=== PATIENT | male | born 1945 | race Caucasian/White ===

== ENCOUNTER → 2017-10-06 | Outpatient (CLI) | payer MEDICARE ==
--- NOTE | 2017-10-06 12:18 | FL ---
Modified barium swallow HISTORY: Dysphagia 1 minute 18 seconds fluoroscopy time supplied. No intraoperative images obtained. Patient was given barium mixed with solids and liquids. Real-time evaluation performed in the lateral projection. No laryngeal penetration or aspiration identified. Residuals were noted at the level of the vallecula on multiple occasions. See dictated report from speech pathology for full evaluation.
== END | disposition home or self-care (01) ==
LOC: RADFLMAIN 11:09
PROVIDERS: ATTEND Otolaryngology
DX: R13.10 Dysphagia, unspecified (principal)
CPT/HCPCS: 74230

== ENCOUNTER → 2018-04-12 | Outpatient (CLI) | payer MEDICARE ==
--- NOTE | 2018-04-12 08:36 | US ---
EXAMINATION TYPE: US duplex aorta DATE OF EXAM: 04/12/2018 COMPARISON: NONE CLINICAL HISTORY: Z82.49 Family hx of Ischemic heart disease and oth. no symptoms, family h/o brain a neurysm and AAA EXAM MEASUREMENTS: Abdominal Aorta: Proximal: not seen due to bowel gas Mid: 1.9 x 2.2cm Distal: 1.7 x 1.7cm Bifurcation: Rt = 1.2cm Lt = 1.1cm No obvious signs of aneurysm seen today, proximal portion was gassed out IMPRESSION: Nonvisualization of the proximal abdominal aorta due to overlying bowel gas. No sonograph ic evidence of abdominal aortic aneurysm within the mid abdominal aorta, and distal abdominal aorta o r at the aortoiliac bifurcation.
--- NOTE | 2018-04-12 09:33 | CT ---
EXAMINATION TYPE: CT angio head DATE OF EXAM: 04/12/2018 COMPARISON: None HISTORY: 72-year-old male family history of ischemic heart disease TECHNIQUE: Contiguous axial scanning of the head performed with IV Contrast, patient injected with 10 0 ml mL of Isovue 370. Coronal/sagittal MIP reconstructions performed. Reconstructions generated on a dedicated independent workstation. CT DLP: 1398.50 mGycm Automated exposure control for dose reduction was used. FINDINGS: Anterior and posterior circulations are patent without significant stenosis or arterial occlusion. No aneurysmal changes identified. Dural venous sinuses are patent. Slight leftward nasal septal deviation. Paranasal sinuses and mastoid air cells well pneumatized. Orb its and globes appear intact. No mass effect, midline shift, or hydrocephalus. No effacement of basal subarachnoid cisterns. IMPRESSION: NO SPECIFIC ABNORMALITY IDENTIFIED ON CTA OF THE HEAD AND [place] OF BUTT.
== END | disposition home or self-care (01) ==
LOC: RADUSMAIN 07:31
PROVIDERS: ATTEND Family Medicine
DX: Z13.6 Encounter for screening for cardiovascular disorders (principal); Z82.49 Family history of ischemic heart disease and other diseases of the circulatory system
CPT/HCPCS: 82565; 84520; 93979; 70496; 36415; Q9967

== ENCOUNTER 2018-06-12 06:37 | Day surgery (SDC) | payer MEDICARE ==
[2018-06-06 16:26] VITALS: BMI 23.7
[2018-06-12] MEDS: CYCLOPENTOLATE 1% OPHTH SOLN 2 ML BTL OP ONE ×3 (06:57→07:18)
[2018-06-12] MEDS: PHENYLEPHRINE 10% OPHTH DROPS 5 ML BTL OP ONE ×3 (07:00→07:21)
[2018-06-12] MEDS: FLURBIPROFEN 0.03% OPHTH DROPS 2.5 ML BTL OP ONE ×3 (07:03→07:25)
[2018-06-12 07:13] VITALS: TEMP 97.1
[2018-06-12] MEDS ORDERED: DEXAMETHASONE SOD PHOSPHATE 10 MG/ML 1 ML VIAL IV ONE (07:15)
[2018-06-12] MEDS ORDERED: ONDANSETRON 4 MG/2 ML VIAL IVP ONE (07:15)
[2018-06-12] MEDS ORDERED: LIDOCAINE 1% 20 ML VIAL (10MG/ML) FOR IV START INTRADERMA PRN (07:15)
[2018-06-12] MEDS ORDERED: MORPHINE SULFATE 2 MG/ML SYRINGE IV PRN (07:15)
[2018-06-12] MEDS ORDERED: LACTATED RINGERS 1,000 ML IV SCH (07:15)
[2018-06-12 07:16] LABS: Glucose,Whole Blood 123 mg/dL (75-99)
[2018-06-12] MEDS ORDERED: LIDOCAINE 1% 20 ML VIAL (10MG/ML) FOR IV START INTRADERMA ONE (07:16)
[2018-06-12] MEDS ORDERED: PROPOFOL 10 MG/ML 20 ML VIAL IV ONE (08:27)
[2018-06-12] MEDS ORDERED: BALANCED SALT IRRIG SOLN COMB2 15 ML IRRIG.SOLN INTRAOCULA ONE (08:34)
[2018-06-12] MEDS ORDERED: HYALURONATE SODIUM INTRAOCULAR 1 EACH SYRINGE (10MG/ML) INTRAOCULA ONE (08:34)
[2018-06-12] MEDS ORDERED: EPINEPHrine (PF) 0.5 ML in BALANCED SALT IRRIG SOLN COMB2 500 ML IRRIGATION ONE (08:35)
--- NOTE | 2018-06-12 09:00 | P.OP ---
Date of Procedure: 06/12/18 Procedure(s) Performed: PREOPERATIVE DIAGNOSIS: Cataract, left eye. POSTOPERATIVE DIAGNOSIS: Cataract, left eye. OPERATION: Phacoemulsification cataract, left eye. DESCRIPTION OF PROCEDURE: The patient was taken to the preoperative holding area. Intravenous Propofol was given so as to bring about adequate sedation. The following mixture was given for local anesthesia: 5 mL of 2% lidocaine, 5 mL of 0.75% Marcaine, and 1 mL of Wydase. Approximately 4 mL was injected in the retrobulbar space of the surgical eye. Additional 1 mL was then directed to the temporal area of the surgical eye. This was performed to allow adequate neurological block of the facial muscles. The patient was revived and then taken into the operative room. The patient was prepped and draped in the usual sterile manner for the operative eye. A lid speculum was put into position. The conjunctiva was resected back from the limbus in the 12 o'clock position. Bleeding was controlled with electrocautery. A #69 blade was then used and a half-thickness scleral incision approximately 1-mm posterior to the limbus was made on bare sclera. This was shelved in the clear cornea using a crescent knife. Next a 15-degree blade was used to make a stab incision at the 3 o' clock position at the corneolimbal interface. Keratome blade was then used and the superior wound was extended into the anterior chamber. Viscoelastic was injected into the anterior chamber and to maintain its form. Next, a cystotome was used and a continuous anterior capsulotomy was made without difficulty. Hydrodissection using a blunt cannula and BSS was performed. Phaco probe was then employed and a groove extending from 12 to 6 o'clock in the lens was created. A Juan wand was used through the stab incision so as to perform a divide and conquer technique. Next an irrigation aspiration probe was utilized and any residual cortex was removed from the eye. Again, viscoelastic was injected into the anterior chamber. An Aaron posterior chamber lens implant was placed in the cartridge and injected into the anterior chamber without difficulty. The SinBrandkidsey hook was utilized to spin the lens into position and this was again performed without any difficulty. The irrigation and aspiration probe was again employed and any residual viscoelastic was removed from the eye. Then BSS was injected into the limbal stab incision and the anterior chamber re-inflated. The conjunctiva was reapproximated using electrocautery. One drop of 0.25% Timoptic was placed over the corneal along with TobraDex ophthalmic ointment. Two sterile patches and a Burt eye shield were taped into position. The patient was transported to the recovery room in stable condition. Pathology: none sent Condition: stable Disposition: same day
[2018-06-12 09:02] VITALS: RESP 18
[2018-06-12 09:16] VITALS: BP 119/72; PULSE 64
[2018-06-12] MEDS ORDERED: BUPIVACAINE (PF) 0.75% 5 ML, HYALURONIDASE, HUMAN RECOMB 150 UNIT, LIDOCAINE 2% (PF) 10... MISCELLANE ONE ×3 (23:00)
[2018-06-12] MEDS ORDERED: TIMOLOL 0.5% OPHTH DROPS 5 ML BTL OP ONE (23:00)
[2018-06-12] MEDS ORDERED: GENTAMICIN/PREDNISOL AC OPHTH OINT 3.5GM OPHTHALMIC ONE (23:00)
== END 2018-06-12 09:37 | disposition home or self-care (01) ==
LOC: OR 06:37
PROVIDERS: ATTEND Ophthalmology
DX: E11.36 Type 2 diabetes mellitus with diabetic cataract (principal); H40.051 Ocular hypertension, right eye; M19.90 Unspecified osteoarthritis, unspecified site; I10 Essential (primary) hypertension; E78.5 Hyperlipidemia, unspecified; K21.9 Gastro-esophageal reflux disease without esophagitis; Z79.84 Long term (current) use of oral hypoglycemic drugs; Z79.899 Other long term (current) drug therapy; Z88.0 Allergy status to penicillin; Z88.2 Allergy status to sulfonamides
CPT/HCPCS: 66984; V2632; J3470; J2001; J0171; J2704

== ENCOUNTER 2019-09-14 14:55 | Inpatient (IN) | payer MEDICARE ==
--- NOTE | 2019-09-14 15:37 | ED ---
Abdominal Pain HPI - General Chief Complaint: Abdominal Pain Stated Complaint: Constipation Time Seen by Provider: 09/14/19 15:07 Source: patient, RN notes reviewed, old records reviewed Mode of arrival: ambulatory Limitations: physical limitation - History of Present Illness Initial Comments: this is a 73-year-old male to ER for evaluation patient was seen for severe abdominal pain difficulty for having a bowel movement 3 days. Patient initially started with constipation on Monday did have about Monday and was very constipated. There are some loose stools prior to both and asperse especially prior to today's constipation. Patient was having a bowel pain and bloating with nausea and vomiting. No fevers. No history of surgery. Patient is a colonoscopy in the past has been normal. MD Complaint: abdominal pain, other (constipation and bloating) -: days(s) Location: diffuse Radiation: none Migration to: no migration Severity: moderate Severity scale (1-10): 5 Quality: cramping, aching Consistency: constant Improves With: nothing Worsens With: nothing Associated Symptoms: nausea, vomiting, constipation - Related Data Home Medications Medication Instructions Recorded Confirmed Cinnamon Bark [Cinnamon] 1,000 mg PO DAILY 03/18/15 06/12/18 Finasteride [Proscar] 5 mg PO HS 03/18/15 06/12/18 Flaxseed [Flaxseed Oil] 1,200 mg PO DAILY 03/18/15 06/12/18 glipiZIDE [Glucotrol] 5 mg PO BID 03/18/15 06/12/18 metFORMIN HCL [Glucophage] 1,000 mg PO W/SUPPER 03/18/15 06/12/18 Aspirin 81 mg PO DAILY 07/17/15 06/12/18 Atorvastatin [Lipitor] 10 mg PO HS 06/06/18 06/12/18 Losartan [Cozaar] 25 mg PO DAILY 06/06/18 06/12/18 Multivitamins, Thera [Multivitamin 1 tab PO DAILY 06/06/18 06/12/18 (formulary)] Omeprazole 20 mg PO HS 06/06/18 06/12/18 Allergies Allergy/AdvReac Type Severity Reaction Status Date / Time Penicillins Allergy Unknown Verified 09/14/19 15:01 Sulfa (Sulfonamide Allergy Swelling, Verified 09/14/19 15:01 Antibiotics) Rash Review of Systems ROS Statement: Those systems with pertinent positive or pertinent negative responses have been documented in the HPI. ROS Other: All systems not noted in ROS Statement are negative. Past Medical History Past Medical History: Diabetes Mellitus, GERD/Reflux, Hyperlipidemia, Hypertension, Skin Disorder Additional Past Medical History / Comment(s): DYSPHAGIA, PAST HX OF MIGRAINES, PSORIASIS., BACK PAIN, STATES POOR VISION RIGHT EYE., CATARACT LEFT EYE., ZION HEARING AIDS. History of Any Multi-Drug Resistant Organisms: None Reported Past Surgical History: Orthopedic Surgery Additional Past Surgical History / Comment(s): 07/22/15 excision anterior osteophytes C3-C4, C4-C5 with NIM cord monitoring. Other SX: LEFT KNEE I&D FOR INFECTION, PICC LINE-later removed, rt cataract, rt knee surgery Past Anesthesia/Blood Transfusion Reactions: Postoperative Nausea & Vomiting (PONV) Past Psychological History: No Psychological Hx Reported Smoking Status: Never smoker Past Alcohol Use History: None Reported Past Drug Use History: None Reported - Past Family History Brother(s) Family Medical History: Cancer Additional Family Medical History / Comment(s): Twin brother = skin cancer. General Exam Limitations: physical limitation General appearance: alert, in no apparent distress Head exam: Present: atraumatic, normocephalic, normal inspection Eye exam: Present: normal appearance, PERRL, EOMI. Absent: scleral icterus, conjunctival injection, periorbital swelling ENT exam: Present: normal exam, mucous membranes moist Neck exam: Present: normal inspection. Absent: tenderness, meningismus, l ymphadenopathy Respiratory exam: Present: normal lung sounds bilaterally. Absent: respiratory distress, wheezes, rales, rhonchi, stridor Cardiovascular Exam: Present: normal rhythm, tachycardia, normal heart sounds. Absent: systolic murmur, diastolic murmur, rubs, gallop, clicks GI/Abdominal exam: Present: distended, tenderness, guarding, normal bowel sounds. Absent: rebound, rigid Extremities exam: Present: normal inspection, full ROM, normal capillary refill. Absent: tenderness, pedal edema, joint swelling, calf tenderness Back exam: Present: normal inspection Neurological exam: Present: alert, oriented X3, CN II-XII intact Psychiatric exam: Present: normal affect, normal mood Skin exam: Present: warm, dry, intact, normal color. Absent: rash Course Vital Signs 09/14/19 09/14/19 14:58 17:48 Temperature 98.6 F 99.0 F Pulse Rate 124 H 89 Respiratory 20 18 Rate Blood Pressure 140/72 130/73 O2 Sat by Pulse 98 97 Oximetry - Reevaluation(s) Reevaluation #1: 09/14/19 16:40 medical record is reviewed Reevaluation #2: 09/14/19 18:54 patient does have adequate pain control - Consultations Consultation #1: Dr. Becerril on consult for Dr. Wick - requested by family member who works in OR. Patient to be admitted Consultation #2: spoke w Dr Mcmahon who is agreeable for admission Medical Decision Making - Medical Decision Making 73 male here for evaluation of abdominal pain with gallstone pancreatitis. Patient be admitted for surgical evaluation and treatment - Lab Data Result diagrams: 09/14/19 15:51 09/14/19 15:51 Lab Results 09/14/19 09/14/19 09/14/19 Range/Units 15:40 15:50 15:51 WBC (3.8-10.6) k/uL RBC (4.30-5.90) m/uL Hgb (13.0-17.5) gm/dL Hct (39.0-53.0) % MCV (80.0-100.0) fL MCH (25.0-35.0) pg MCHC (31.0-37.0) g/dL RDW (11.5-15.5) % Plt Count (150-450) k/uL Neutrophils % % Lymphocytes % % Monocytes % % Eosinophils % % Basophils % % Neutrophils # (1.3-7.7) k/uL Lymphocytes # (1.0-4.8) k/uL Monocytes # (0-1.0) k/uL Eosinophils # (0-0.7) k/uL Basophils # (0-0.2) k/uL Sodium 139 (137-145) mmol/L Potassium 4.4 (3.5-5.1) mmol/L Chloride 102 (98-107) mmol/L Carbon Dioxide 24 (22-30) mmol/L Anion Gap 13 mmol/L BUN 21 H (9-20) mg/dL Creatinine 1.07 (0.66-1.25) mg/dL Est GFR (CKD-EPI)AfAm 80 (>60 ml/min/1.73 sqM) Est GFR (CKD-EPI)NonAf 69 (>60 ml/min/1.73 sqM) Glucose 152 H (74-99) mg/dL Plasma Lactic Acid Diego 2.0 (0.7-2.0) mmol/L Calcium 10.1 (8.4-10.2) mg/dL Total Bilirubin 7.0 H (0.2-1.3) mg/dL AST 189 H (17-59) U/L ALT 256 H (4-49) U/L Alkaline Phosphatase 190 H (38-126) U/L Creatine Kinase 39 L (55-170) U/L Total Protein 8.4 H (6.3-8.2) g/dL Albumin 4.7 (3.5-5.0) g/dL Amylase 473 H* (30-110) U/L Lipase 3749 H (23-300) U/L Urine Color Dark Yellow Urine Appearance Cloudy (Clear) Urine pH 5.5 (5.0-8.0) Ur Specific [place] 1.021 (1.001-1.035) Urine Protein 1+ H (Negative) Urine Glucose (UA) Negative (Negative) Urine Ketones 2+ H (Negative) Urine Blood Trace H (Negative) Urine Nitrite Negative (Negative) Urine Bilirubin 1+ H (Negative) Urine Urobilinogen 4.0 (<2.0) mg/dL Ur Leukocyte Esterase Negative (Negative) Urine RBC 2 (0-5) /hpf Urine WBC 2 (0-5) /hpf Ur Squamous Epith Cells 1 (0-4) /hpf Amorphous Sediment Rare H (None) /hpf Urine Bacteria Rare H (None) /hpf Hyaline Casts 1 (0-2) /lpf Urine Mucus Occasional H (None) /hpf 09/14/19 Range/Units 15:51 WBC 6.5 (3.8-10.6) k/uL RBC 4.94 (4.30-5.90) m/uL Hgb 15.9 (13.0-17.5) gm/dL Hct 45.8 (39.0-53.0) % MCV 92.8 (80.0-100.0) fL MCH 32.2 (25.0-35.0) pg MCHC 34.7 (31.0-37.0) g/dL RDW 12.6 (11.5-15.5) % Plt Count 149 L (150-450) k/uL Neutrophils % 84 % Lymphocytes % 6 % Monocytes % 7 % Eosinophils % 1 % Basophils % 1 % Neutrophils # 5.5 (1.3-7.7) k/uL Lymphocytes # 0.4 L (1.0-4.8) k/uL Monocytes # 0.4 (0-1.0) k/uL Eosinophils # 0.1 (0-0.7) k/uL Basophils # 0.0 (0-0.2) k/uL Sodium (137-145) mmol/L Potassium (3.5-5.1) mmol/L Chloride (98-107) mmol/L Carbon Dioxide (22-30) mmol/L Anion Gap mmol/L BUN (9-20) mg/dL Creatinine (0.66-1.25) mg/dL Est GFR (CKD-EPI)AfAm (>60 ml/min/1.73 sqM) Est GFR (CKD-EPI)NonAf (>60 ml/min/1.73 sqM) Glucose (74-99) mg/dL Plasma Lactic Acid Diego (0.7-2.0) mmol/L Calcium (8.4-10.2) mg/dL Total Bilirubin (0.2-1.3) mg/dL AST (17-59) U/L ALT (4-49) U/L Alkaline Phosphatase (38-126) U/L Creatine Kinase (55-170) U/L Total Protein (6.3-8.2) g/dL Albumin (3.5-5.0) g/dL Amylase (30-110) U/L Lipase (23-300) U/L Urine Color Urine Appearance (Clear) Urine pH (5.0-8.0) Ur Specific [place] (1.001-1.035) Urine Protein (Negative) Urine Glucose (UA) (Negative) Urine Ketones (Negative) Urine Blood (Negative) Urine Nitrite (Negative) Urine Bilirubin (Negative) Urine Urobilinogen (<2.0) mg/dL Ur Leukocyte Esterase (Negative) Urine RBC (0-5) /hpf Urine WBC (0-5) /hpf Ur Squamous Epith Cells (0-4) /hpf Amorphous Sediment (None) /hpf Urine Bacteria (None) /hpf Hyaline Casts (0-2) /lpf Urine Mucus (None) /hpf - Radiology Data Radiology results: report reviewed (x-ray KUB and abdominal series with chest x- ray is negative, GALLBLADDER DOES SHOW SIGNIFICANTLY DILATED, BILE DUCT CONSISTENT WITH GALLSTONE PANCREATITIS), image reviewed Disposition Clinical Impression: Acute gallstone pancreatitis, Abdominal pain Disposition: ADMITTED IP TO THIS [facility] Condition: Fair Is patient prescribed a controlled substance at d/c from ED?: No Referrals: Libby Garcia III, MD [Primary Care Provider] - 1-2 days
[2019-09-14] MEDS ORDERED: MORPHINE SULFATE 4 MG/ML SYRINGE IV STA (15:43)
[2019-09-14] MEDS ORDERED: SODIUM CHLORIDE 0.9% 1,000 ML IV STA (15:43)
[2019-09-14] MEDS ORDERED: PANTOPRAZOLE 40 MG/10 ML VIAL IVP STA (15:43)
[2019-09-14] MEDS ORDERED: ONDANSETRON 4 MG/2 ML VIAL IVP STA (15:43)
[2019-09-14 16:17] LABS: Amorphous Sediment,Urine Rare /hpf; Appearance,Urine Cloudy (Clear); Bilirubin,Urine 1+ (Negative); Blood,Urine Trace (Negative); Color,Urine Dark Yellow; Glucose,Urine (UA) Negative (Negative); Hyaline Casts,Urine 1 /lpf (0-2); Ketones,Urine 2+ (Negative); Leukocyte Esterase,Urine Negative (Negative); Mucus,Urine Occasional /hpf; Nitrite,Urine Negative (Negative); PH, Urine 5.5 (5.0-8.0); Protein,Urine 1+ (Negative); RBC,Urine 2 /hpf (0-5); Specific Gravity,Urine 1.021 (1.001-1.035); Squamous Epithelial Cell,Urine 1 /hpf (0-4); WBC,Urine 2 /hpf (0-5)
[2019-09-14 16:26] LABS: Basophils % (A) 1 %; Eosinophils # (A) 0.1 k/uL (0-0.7); Eosinophils % (A) 1 %; HCT 45.8 % (39.0-53.0); HGB 15.9 gm/dL (13.0-17.5); Lymphocytes # (A) 0.4 k/uL (1.0-4.8); Lymphocytes % (A) 6 %; MCH 32.2 pg (25.0-35.0); MCHC 34.7 g/dL (31.0-37.0); MCV 92.8 fL (80.0-100.0); Mean Platelet Volume 8.5; Monocytes # (A) 0.4 k/uL (0-1.0); Monocytes % (A) 7 %; Neutrophils # (A) 5.5 k/uL (1.3-7.7); Neutrophils % (A) 84 %; Platelet Count 149 k/uL (150-450); RBC 4.94 m/uL (4.30-5.90); RDW 12.6 % (11.5-15.5); WBC 6.5 k/uL (3.8-10.6)
[2019-09-14 16:41] LABS: Albumin 4.7 g/dL (3.5-5.0); Calcium 10.1 mg/dL (8.4-10.2); Potassium 4.4 mmol/L (3.5-5.1); Total Protein 8.4 g/dL (6.3-8.2)
--- NOTE | 2019-09-14 17:07 | XR ---
EXAMINATION TYPE: XR abdomen acute w cxr DATE OF EXAM: 09/14/2019 COMPARISON: Prior chest x-ray 07/13/2015 HISTORY: Pain and constipation TECHNIQUE: Supine, upright, and frontal chest views of the abdomen are obtained. FINDINGS: There is no evidence for pneumoperitoneum. The bowel gas pattern is unremarkable as there is air throughout nondilated small and large bowel. No sizeable air fluid levels. No mass effects are seen. No unusual calcifications. IMPRESSION: Unremarkable study
[2019-09-14 17:33] LABS: Bacteria,Urine Rare /hpf
--- NOTE | 2019-09-14 17:48 | US ---
EXAMINATION TYPE: US gallbladder DATE OF EXAM: 09/14/2019 COMPARISON: NONE CLINICAL HISTORY: pain. 4th episode of extreme RUQ pain with N/V EXAM MEASUREMENTS: Liver Length: 16.7 cm Gallbladder Wall: 0.2 cm CBD: 1.1 cm Right Kidney: 10.8 x 4.6 x 6.0 cm bowel gas limits exam Pancreas: not visualized due to bowel gas Liver: difficult to penetrate, intercostal images only, focal fatty sparring seen near GB jennifer Gallbladder: probable slduge noted with echogenic stones seen within, no wall thickening and no chol ecystic gutter fluid, gallbladder may be hydropic. Evidence for sonographic Mancilla's sign: no, but on pain meds at time of exam CBD: 1.1cm, dilated with no obvious sign of obstruction Right Kidney: 3.2cm renal cyst noted There is no ascites. IMPRESSION: Exam is somewhat limited. Hepatic steatosis suspected. There may be underlying hepatic me fabiola. Dilated common bile duct, consider gastroenterology consult. Probable tumefactive sludge within the gallbladder. Cholelithiasis.
[2019-09-14] MEDS ORDERED: ONDANSETRON 4 MG/2 ML VIAL IVP PRN (18:44)
[2019-09-14] MEDS: SODIUM CHLORIDE 0.9% 500 ML 500 ML IV SCH ×3 (19:13→20:13)
--- NOTE | 2019-09-14 20:05 | CT ---
EXAMINATION TYPE: CT abdomen pelvis w con DATE OF EXAM: 09/14/2019 COMPARISON: HISTORY: Constipation and abdominal pain. CT DLP: 1147.5 mGycm Automated exposure control for dose reduction was used. TECHNIQUE: Helical acquisition of images from the lung bases through the pelvis have been completed. CONTRAST: Performed without Oral Contrast and with IV Contrast, patient injected with 100 mL of Isovue 300. FINDINGS: There are coronary calcifications. LUNG BASES: There is some dependent atelectatic changes present. AORTA: No significant abnormality is appreciated. LIVER/GB: Liver shows low attenuation likely due to hepatic steatosis. Gallbladder shows some depende nt hyperdensity likely due to some retained stones. Some questionable dependent density present withi n the distal common bile duct on axial image 44 within the head of the pancreas. Common bile duct and gallbladder are dilated. PANCREAS: No significant abnormality is seen. SPLEEN: No significant abnormality is seen. ADRENALS: No significant abnormality is seen. KIDNEYS: Multiple cystic foci are associated with the kidneys. Suspect there is a renal artery aneury sm in the left renal hilum measuring 2 cm, crescentic calcification is present REPRODUCTIVE ORGANS: Prostate is enlarged. BOWEL: No significant abnormality is seen. FREE AIR: No Free Air visible. ASCITES: None visible. PELVIC ADENOPATHY: None visualized. RETROPERITONEAL ADENOPATHY: No Retroperitoneal Adenopathy visible. URINARY BLADDER: No significant abnormality is seen. OSSEOUS STRUCTURES: No significant abnormality is seen. IMPRESSION: CHOLELITHIASIS, DIFFICULT TO EXCLUDE CHOLEDOCHOLITHIASIS, CORRELATE FOR CHOLECYSTITIS, THERE IS DILAT ED COMMON BILE DUCT. Left renal artery aneurysm.
[2019-09-14] MEDS: SODIUM CHLORIDE 0.9% 1,000 ML IV SCH (20:41)
[2019-09-14 21:50] LABS: Glucose,Whole Blood 103 mg/dL (75-99)
[2019-09-14] MEDS: INSULIN ASPART (NovoLOG) 100 UNIT/ML VIAL SQ SCH (21:59)
[2019-09-15 00:40] LABS: Glucose,Whole Blood 84 mg/dL (75-99)
[2019-09-15] MEDS: SODIUM CHLORIDE 0.9% 1,000 ML IV SCH ×3 (03:04→18:30)
[2019-09-15 04:04] LABS: Glucose,Whole Blood 85 mg/dL (75-99)
[2019-09-15 07:05] LABS: Glucose,Whole Blood 76 mg/dL (75-99)
[2019-09-15 07:46] LABS: ALT 183 U/L (4-49); AST 129 U/L (17-59); African American GFR (CKD) >90 (>60 ml/min/1.73 sqM); Alkaline Phosphatase 148 U/L (38-126); Amylase 209 U/L (30-110); Anion Gap 8 mmol/L; Blood Urea Nitrogen 15 mg/dL (9-20); Calcium 8.4 mg/dL (8.4-10.2); Carbon Dioxide 22 mmol/L (22-30); Chloride 108 mmol/L (98-107); Glucose 72 mg/dL (74-99); Non-African American GFR(CKD) 79 (>60 ml/min/1.73 sqM); Sodium 138 mmol/L (137-145); Total Bilirubin 6.5 mg/dL (0.2-1.3); Total Protein 5.9 g/dL (6.3-8.2)
[2019-09-15 08:09] LABS: Glucose,Whole Blood 74 mg/dL (75-99)
[2019-09-15] MEDS ORDERED: DEXTROSE 10 % IN WATER 250 ML IV ONE (08:21)
[2019-09-15] MEDS: INSULIN ASPART (NovoLOG) 100 UNIT/ML VIAL SQ SCH ×4 (08:22→21:16)
[2019-09-15] MEDS: PANTOPRAZOLE 40 MG/10 ML VIAL IV SCH (08:23)
[2019-09-15] MEDS: MORPHINE SULFATE 4 MG/ML SYRINGE IVP PRN ×2 (09:11→21:24)
[2019-09-15 10:08] LABS: Glucose,Whole Blood 141 mg/dL (75-99)
[2019-09-15 11:27] LABS: Glucose,Whole Blood 121 mg/dL (75-99)
[2019-09-15] MEDS: ENOXAPARIN 40 MG/0.4 ML SYRINGE SQ SCH (11:28)
--- NOTE | 2019-09-15 14:22 | P.HPIM ---
History of Present Illness Patient is a pleasant 73-year-old male came in with complaints of severe abdominal pain the epigastric area radiating to the back. Patient pain was severe sharp in nature. Patient is found to have pancreatitis with elevated lipase of around 2010 as well as elevated amylase along with elevated liver enzymes, ultrasound and CAT scan did show cholelithiasis and possible cholecystitis and possibility of choledocholithiasis and ascending cholangitis with elevated liver enzymes. Liver enzymes are coming down today. Patient was later found to be bacteremic presently E. coli. Patient is ALLERGIC to penicillins because of which I started him on Rocephin 2 g. Patient is feeling much better patient almost completely resolved nausea resolved patient was having nausea and vomiting patient will be started on clear liquid diet advance as tolerated and patient will be nothing by mouth tonight for either ERCP a cholecystectomy tomorrow. Patient did not have any fever or leukocytosis Review of Systems REVIEW OF SYSTEMS: CONSTITUTIONAL: No fever, no malaise, no fatigue. HEENT: No recent visual problems or hearing problems. Denied any sore throat. CARDIOVASCULAR: No chest pain, orthopnea, PND, no palpitations, no syncope. PULMONARY: No shortness of breath, no cough, no hemoptysis. GASTROINTESTINAL: As mentioned in HPI NEUROLOGICAL: No headaches, no weakness, no numbness. HEMATOLOGICAL: Denies any bleeding or petechiae. GENITOURINARY: Denies any burning micturition, frequency, or urgency. MUSCULOSKELETAL/RHEUMATOLOGICAL: Denies any joint pain, swelling, or any muscle pain. ENDOCRINE: Denies any polyuria or polydipsia. The rest of the 14-point review of systems is negative. Past Medical History Past Medical History: Diabetes Mellitus, GERD/Reflux, Hyperlipidemia, Hypertension, Skin Disorder Additional Past Medical History / Comment(s): DYSPHAGIA, PAST HX OF MIGRAINES, PSORIASIS., BACK PAIN, STATES POOR VISION RIGHT EYE., CATARACT LEFT EYE., ZION HEARING AIDS. History of Any Multi-Drug Resistant Organisms: None Reported Past Surgical History: Orthopedic Surgery Additional Past Surgical History / Comment(s): 07/22/15 excision anterior osteophytes C3-C4, C4-C5 with NIM cord monitoring. Other SX: LEFT KNEE I&D FOR INFECTION, PICC LINE-later removed, rt cataract, rt knee surgery Past Anesthesia/Blood Transfusion Reactions: Postoperative Nausea & Vomiting (PONV) Past Psychological History: No Psychological Hx Reported Smoking Status: Never smoker Past Alcohol Use History: None Reported Past Drug Use History: None Reported - Past Family History Brother(s) Family Medical History: Cancer Additional Family Medical History / Comment(s): Twin brother = skin cancer. Medications and Allergies Home Medications Medication Instructions Recorded Confirmed Type Finasteride [Proscar] 5 mg PO HS 03/18/15 09/14/19 History Atorvastatin [Lipitor] 10 mg PO HS 06/06/18 09/14/19 History Losartan [Cozaar] 25 mg PO DAILY 06/06/18 09/14/19 History Multivitamins, Thera [Multivitamin 1 tab PO DAILY 06/06/18 09/14/19 History (formulary)] Omeprazole 20 mg PO DAILY 06/06/18 09/14/19 History Aspirin EC [Ecotrin Low Dose] 81 mg PO DAILY 09/14/19 09/14/19 History Latanoprost/Pf [Latanoprost 0.005% 1 drop BOTH EYES HS 09/14/19 09/14/19 History Eye Drop] glipiZIDE XL [Glucotrol Xl] 5 mg PO BID 09/14/19 09/14/19 History metFORMIN HCL ER [Glucophage Xr] 1,000 mg PO AC-SUPPER 09/14/19 09/14/19 History sitaGLIPtin [Januvia] 100 mg PO DAILY 09/14/19 09/14/19 History Allergies Allergy/AdvReac Type Severity Reaction Status Date / Time Penicillins Allergy Unknown Verified 09/14/19 19:06 Sulfa (Sulfonamide Allergy Swelling, Verified 09/14/19 19:06 Antibiotics) Rash Physical Exam Vitals: Vital Signs Temp Pulse Pulse Pulse Resp BP BP 09/15/19 13:59 98.0 F 88 18 146/67 09/15/19 03:55 98.6 F 93 18 105/56 09/14/19 19:50 97.9 F 92 16 129/70 09/14/19 19:00 83 18 130/75 09/14/19 17:48 99.0 F 89 18 130/73 09/14/19 14:58 98.6 F 124 H 20 140/72 Pulse Ox 09/15/19 13:59 99 09/15/19 03:55 93 L 09/14/19 19:50 99 09/14/19 19:00 97 09/14/19 17:48 97 09/14/19 14:58 98 Intake and Output 09/14/19 09/15/19 09/15/19 22:59 06:59 14:59 Intake Total 300 Output Total 1 Balance -1 300 Intake: Oral 300 Output: Stool 1 Other: Voiding Method Toilet Toilet # Voids 1 1 1 Weight 80.739 kg PHYSICAL EXAMINATION: GENERAL: The patient is alert and oriented x3, not in any acute distress. Well developed, well nourished. HEENT: Pupils are round and equally reacting to light. EOMI. No scleral icterus. No conjunctival pallor. Normocephalic, atraumatic. No pharyngeal erythema. No thyromegaly. CARDIOVASCULAR: S1 and S2 present. No murmurs, rubs, or gallops. PULMONARY: Chest is clear to auscultation, no wheezing or crackles. ABDOMEN: Soft, nontender, nondistended, normoactive bowel sounds. No palpable organomegaly. MUSCULOSKELETAL: No joint swelling or deformity. EXTREMITIES: No cyanosis, clubbing, or pedal edema. NEUROLOGICAL: Gross neurological examination did not reveal any focal deficits. SKIN: No rashes. Results CBC & Chem 7: 09/14/19 15:51 09/15/19 07:18 Labs: Abnormal Lab Results - Last 24 Hours (Table) 09/14/19 09/14/19 09/14/19 Range/Units 15:50 15:51 15:51 Plt Count 149 L (150-450) k/uL Lymphocytes # 0.4 L (1.0-4.8) k/uL Chloride (98-107) mmol/L BUN 21 H (9-20) mg/dL Glucose 152 H (74-99) mg/dL POC Glucose (mg/dL) (75-99) mg/dL Total Bilirubin 7.0 H (0.2-1.3) mg/dL AST 189 H (17-59) U/L ALT 256 H (4-49) U/L Alkaline Phosphatase 190 H (38-126) U/L Creatine Kinase 39 L (55-170) U/L Total Protein 8.4 H (6.3-8.2) g/dL Albumin (3.5-5.0) g/dL Amylase 473 H* (30-110) U/L Lipase 3749 H (23-300) U/L Urine Protein 1+ H (Negative) Urine Ketones 2+ H (Negative) Urine Blood Trace H (Negative) Urine Bilirubin 1+ H (Negative) Amorphous Sediment Rare H (None) /hpf Urine Bacteria Rare H (None) /hpf Urine Mucus Occasional H (None) /hpf 09/14/19 09/15/19 09/15/19 Range/Units 21:42 07:18 08:07 Plt Count (150-450) k/uL Lymphocytes # (1.0-4.8) k/uL Chloride 108 H (98-107) mmol/L BUN (9-20) mg/dL Glucose 72 L (74-99) mg/dL POC Glucose (mg/dL) 103 H 74 L (75-99) mg/dL Total Bilirubin 6.5 H (0.2-1.3) mg/dL AST 129 H (17-59) U/L ALT 183 H (4-49) U/L Alkaline Phosphatase 148 H (38-126) U/L Creatine Kinase (55-170) U/L Total Protein 5.9 L (6.3-8.2) g/dL Albumin 3.0 L (3.5-5.0) g/dL Amylase 209 H (30-110) U/L Lipase 1369 H (23-300) U/L Urine Protein (Negative) Urine Ketones (Negative) Urine Blood (Negative) Urine Bilirubin (Negative) Amorphous Sediment (None) /hpf Urine Bacteria (None) /hpf Urine Mucus (None) /hpf 09/15/19 09/15/19 Range/Units 10:05 11:24 Plt Count (150-450) k/uL Lymphocytes # (1.0-4.8) k/uL Chloride (98-107) mmol/L BUN (9-20) mg/dL Glucose (74-99) mg/dL POC Glucose (mg/dL) 141 H 121 H (75-99) mg/dL Total Bilirubin (0.2-1.3) mg/dL AST (17-59) U/L ALT (4-49) U/L Alkaline Phosphatase (38-126) U/L Creatine Kinase (55-170) U/L Total Protein (6.3-8.2) g/dL Albumin (3.5-5.0) g/dL Amylase (30-110) U/L Lipase (23-300) U/L Urine Protein (Negative) Urine Ketones (Negative) Urine Blood (Negative) Urine Bilirubin (Negative) Amorphous Sediment (None) /hpf Urine Bacteria (None) /hpf Urine Mucus (None) /hpf Microbiology - Last 24 Hours (Table) 09/14/19 15:55 Blood Culture Gram Stain - Preliminary Blood Blood Culture - Preliminary Escherichia coli 09/14/19 15:55 Blood Culture - Final Blood Thrombosis Risk Factor Assmnt - Choose All That Apply Each Risk Factor Represents 2 Points: Age 61-74 years Thrombosis Risk Factor Assessment Total Risk Factor Score: 2 Thrombosis Risk Factor Assessment Level: Low Risk Assessment and Plan Plan: -Sepsis and bacteremia secondary to cholecystitis and a possible ascending cholangitis patient has E. coli bacteremia patient was started on Rocephin 2 g patient is ALLERGIC to penicillin able to tolerate Rocephin, repeat blood cultures are back and for today and tomorrow patient made the need for ERCP and/or cholecystectomy. -Cholelithiasis and possible cholecystitis. -Elevated liver enzymes probably secondary to his choledocholithiasis gastric body was consulted will repeat liver enzymes again tomorrow -Gallstone pancreatitis patient's symptoms are better with be started on diet and advance it as tolerated although patient will be nothing by mouth after mi dnight -Gastroesophageal reflux disease for which patient is on Protonix neck line- hyperlipidemia -Hypertension DVT prophylaxis: Ambulation patient is ambulating in the hallway
--- NOTE | 2019-09-15 14:58 | P.GSCN ---
History of Present Illness Consult date: 09/15/19 Reason for Consult: right upper quadrant pain History of present illness: this is a 73-year-old male who's had complaints of right upper quadrant pain. Patient states over the last year he's had 4 attacks of right upper quadrant pain that he presumed was due to indigestion. Patient presents emergency room yesterday with complaints of severe pain. He is worked up found have evidence of choledocholithiasis and gallstone pancreatitis. Patient states he feels better today. Past Medical History Past Medical History: Diabetes Mellitus, GERD/Reflux, Hyperlipidemia, Hypertension, Skin Disorder Additional Past Medical History / Comment(s): DYSPHAGIA, PAST HX OF MIGRAINES, PSORIASIS., BACK PAIN, STATES POOR VISION RIGHT EYE., CATARACT LEFT EYE., ZION HEARING AIDS. History of Any Multi-Drug Resistant Organisms: None Reported Past Surgical History: Orthopedic Surgery Additional Past Surgical History / Comment(s): 07/22/15 excision anterior osteophytes C3-C4, C4-C5 with NIM cord monitoring. Other SX: LEFT KNEE I&D FOR INFECTION, PICC LINE-later removed, rt cataract, rt knee surgery Past Anesthesia/Blood Transfusion Reactions: Postoperative Nausea & Vomiting (PONV) Past Psychological History: No Psychological Hx Reported Smoking Status: Never smoker Past Alcohol Use History: None Reported Past Drug Use History: None Reported - Past Family History Brother(s) Family Medical History: Cancer Additional Family Medical History / Comment(s): Twin brother = skin cancer. Medications and Allergies Home Medications Medication Instructions Recorded Confirmed Type Finasteride [Proscar] 5 mg PO HS 03/18/15 09/14/19 History Atorvastatin [Lipitor] 10 mg PO HS 06/06/18 09/14/19 History Losartan [Cozaar] 25 mg PO DAILY 06/06/18 09/14/19 History Multivitamins, Thera [Multivitamin 1 tab PO DAILY 06/06/18 09/14/19 History (formulary)] Omeprazole 20 mg PO DAILY 06/06/18 09/14/19 History Aspirin EC [Ecotrin Low Dose] 81 mg PO DAILY 09/14/19 09/14/19 History Latanoprost/Pf [Latanoprost 0.005% 1 drop BOTH EYES HS 09/14/19 09/14/19 History Eye Drop] glipiZIDE XL [Glucotrol Xl] 5 mg PO BID 09/14/19 09/14/19 History metFORMIN HCL ER [Glucophage Xr] 1,000 mg PO AC-SUPPER 09/14/19 09/14/19 History sitaGLIPtin [Januvia] 100 mg PO DAILY 09/14/19 09/14/19 History Allergies Allergy/AdvReac Type Severity Reaction Status Date / Time Penicillins Allergy Unknown Verified 09/14/19 19:06 Sulfa (Sulfonamide Allergy Swelling, Verified 09/14/19 19:06 Antibiotics) Rash Surgical - Exam Vital Signs Temp Pulse Resp BP Pulse Ox 98.6 F 124 H 20 140/72 98 09/14/19 14:58 09/14/19 14:58 09/14/19 14:58 09/14/19 14:58 09/14/19 14:58 - General obvious jaundice well developed, well nourished, no distress - Eyes PERRL, icteric - ENT normal pinna - Neck no masses - Respiratory normal expansion - Cardiovascular Rhythm: regular - Abdomen mild epigastric tenderness Abdomen: soft Results - Labs 09/14/19 15:51 09/15/19 07:18 Abnormal Lab Results - Last 24 Hours (Table) 09/14/19 09/14/19 09/14/19 Range/Units 15:50 15:51 15:51 Plt Count 149 L (150-450) k/uL Lymphocytes # 0.4 L (1.0-4.8) k/uL Chloride (98-107) mmol/L BUN 21 H (9-20) mg/dL Glucose 152 H (74-99) mg/dL POC Glucose (mg/dL) (75-99) mg/dL Total Bilirubin 7.0 H (0.2-1.3) mg/dL AST 189 H (17-59) U/L ALT 256 H (4-49) U/L Alkaline Phosphatase 190 H (38-126) U/L Creatine Kinase 39 L (55-170) U/L Total Protein 8.4 H (6.3-8.2) g/dL Albumin (3.5-5.0) g/dL Amylase 473 H* (30-110) U/L Lipase 3749 H (23-300) U/L Urine Protein 1+ H (Negative) Urine Ketones 2+ H (Negative) Urine Blood Trace H (Negative) Urine Bilirubin 1+ H (Negative) Amorphous Sediment Rare H (None) /hpf Urine Bacteria Rare H (None) /hpf Urine Mucus Occasional H (None) /hpf 09/14/19 09/15/19 09/15/19 Range/Units 21:42 07:18 08:07 Plt Count (150-450) k/uL Lymphocytes # (1.0-4.8) k/uL Chloride 108 H (98-107) mmol/L BUN (9-20) mg/dL Glucose 72 L (74-99) mg/dL POC Glucose (mg/dL) 103 H 74 L (75-99) mg/dL Total Bilirubin 6.5 H (0.2-1.3) mg/dL AST 129 H (17-59) U/L ALT 183 H (4-49) U/L Alkaline Phosphatase 148 H (38-126) U/L Creatine Kinase (55-170) U/L Total Protein 5.9 L (6.3-8.2) g/dL Albumin 3.0 L (3.5-5.0) g/dL Amylase 209 H (30-110) U/L Lipase 1369 H (23-300) U/L Urine Protein (Negative) Urine Ketones (Negative) Urine Blood (Negative) Urine Bilirubin (Negative) Amorphous Sediment (None) /hpf Urine Bacteria (None) /hpf Urine Mucus (None) /hpf 09/15/19 09/15/19 Range/Units 10:05 11:24 Plt Count (150-450) k/uL Lymphocytes # (1.0-4.8) k/uL Chloride (98-107) mmol/L BUN (9-20) mg/dL Glucose (74-99) mg/dL POC Glucose (mg/dL) 141 H 121 H (75-99) mg/dL Total Bilirubin (0.2-1.3) mg/dL AST (17-59) U/L ALT (4-49) U/L Alkaline Phosphatase (38-126) U/L Creatine Kinase (55-170) U/L Total Protein (6.3-8.2) g/dL Albumin (3.5-5.0) g/dL Amylase (30-110) U/L Lipase (23-300) U/L Urine Protein (Negative) Urine Ketones (Negative) Urine Blood (Negative) Urine Bilirubin (Negative) Amorphous Sediment (None) /hpf Urine Bacteria (None) /hpf Urine Mucus (None) /hpf Microbiology - Last 24 Hours (Table) 09/14/19 15:55 Blood Culture Gram Stain - Preliminary Blood Blood Culture - Preliminary Escherichia coli 09/14/19 15:55 Blood Culture - Final Blood Diabetes panel 09/14/19 09/15/19 Range/Units 15:51 07:18 Sodium 139 138 (137-145) mmol/L Potassium 4.4 4.0 (3.5-5.1) mmol/L Chloride 102 108 H (98-107) mmol/L Carbon Dioxide 24 22 (22-30) mmol/L BUN 21 H 15 (9-20) mg/dL Creatinine 1.07 0.96 (0.66-1.25) mg/dL Glucose 152 H 72 L (74-99) mg/dL Calcium 10.1 8.4 (8.4-10.2) mg/dL AST 189 H 129 H (17-59) U/L ALT 256 H 183 H (4-49) U/L Alkaline Phosphatase 190 H 148 H (38-126) U/L Total Protein 8.4 H 5.9 L (6.3-8.2) g/dL Albumin 4.7 3.0 L (3.5-5.0) g/dL Calcium panel 09/14/19 09/15/19 Range/Units 15:51 07:18 Calcium 10.1 8.4 (8.4-10.2) mg/dL Albumin 4.7 3.0 L (3.5-5.0) g/dL Pituitary panel 09/14/19 09/15/19 Range/Units 15:51 07:18 Sodium 139 138 (137-145) mmol/L Potassium 4.4 4.0 (3.5-5.1) mmol/L Chloride 102 108 H (98-107) mmol/L Carbon Dioxide 24 22 (22-30) mmol/L BUN 21 H 15 (9-20) mg/dL Creatinine 1.07 0.96 (0.66-1.25) mg/dL Glucose 152 H 72 L (74-99) mg/dL Calcium 10.1 8.4 (8.4-10.2) mg/dL Adrenal panel 09/14/19 09/15/19 Range/Units 15:51 07:18 Sodium 139 138 (137-145) mmol/L Potassium 4.4 4.0 (3.5-5.1) mmol/L Chloride 102 108 H (98-107) mmol/L Carbon Dioxide 24 22 (22-30) mmol/L BUN 21 H 15 (9-20) mg/dL Creatinine 1.07 0.96 (0.66-1.25) mg/dL Glucose 152 H 72 L (74-99) mg/dL Calcium 10.1 8.4 (8.4-10.2) mg/dL Total Bilirubin 7.0 H 6.5 H (0.2-1.3) mg/dL AST 189 H 129 H (17-59) U/L ALT 256 H 183 H (4-49) U/L Alkaline Phosphatase 190 H 148 H (38-126) U/L Total Protein 8.4 H 5.9 L (6.3-8.2) g/dL Albumin 4.7 3.0 L (3.5-5.0) g/dL - Imaging Additional studies: ultrasound the abdomen shows evidence of dilated bile ducts with gallstones and sludge within the gallbladder Assessment and Plan Assessment: presumed choledocholithiasis with gallstone Iasbel Daggett. Patient will be evaluated by GI service. He'll undergo laparoscopic ostectomy when stable
[2019-09-15 17:00] LABS: Glucose,Whole Blood 84 mg/dL (75-99)
[2019-09-15] MEDS: FINASTERIDE 5 MG TAB PO SCH (21:17)
[2019-09-15] MEDS: LATANOPROST 0.005% OPHTH DROPS 2.5 ML BTL BOTH EYES SCH (21:18)
[2019-09-15 21:20] LABS: Glucose,Whole Blood 183 mg/dL (75-99)
[2019-09-16 06:22] LABS: Glucose,Whole Blood 88 mg/dL (75-99)
[2019-09-16] MEDS: INSULIN ASPART (NovoLOG) 100 UNIT/ML VIAL SQ SCH ×4 (07:25→20:28)
[2019-09-16] MEDS ORDERED: HYDROmorphone 0.5 MG/0.5 ML SYRINGE IVP PRN (08:04)
[2019-09-16] MEDS ORDERED: ONDANSETRON 4 MG/2 ML VIAL IVP ONE (08:04)
[2019-09-16] MEDS ORDERED: DEXAMETHASONE SOD PHOSPHATE 10 MG/ML 1 ML VIAL IV ONE (08:04)
[2019-09-16] MEDS: ENOXAPARIN 40 MG/0.4 ML SYRINGE SQ SCH (08:16)
[2019-09-16] MEDS: PANTOPRAZOLE 40 MG/10 ML VIAL IV SCH (08:16)
[2019-09-16] MEDS: SODIUM CHLORIDE 0.9% 1,000 ML IV SCH ×3 (08:16→22:55)
[2019-09-16 08:48] LABS: HCT 36.4 % (39.0-53.0); HGB 12.6 gm/dL (13.0-17.5); MCH 32.3 pg (25.0-35.0); MCHC 34.7 g/dL (31.0-37.0); MCV 93.1 fL (80.0-100.0); Mean Platelet Volume 7.8; Platelet Count 116 k/uL (150-450); RDW 12.5 % (11.5-15.5); WBC 4.1 k/uL (3.8-10.6)
[2019-09-16 08:50] LABS: Albumin 2.8 g/dL (3.5-5.0); Calcium 8.7 mg/dL (8.4-10.2); Total Bilirubin 6.5 mg/dL (0.2-1.3); Total Protein 5.7 g/dL (6.3-8.2)
[2019-09-16] MEDS: MORPHINE SULFATE 4 MG/ML SYRINGE IVP PRN ×2 (09:47→20:29)
[2019-09-16] MEDS: LACTATED RINGERS 1,000 ML IV SCH (09:51)
[2019-09-16 11:52] LABS: Glucose,Whole Blood 165 mg/dL (75-99)
--- NOTE | 2019-09-16 13:59 | P.PN ---
Subjective Progress Note Date: 09/16/19 Principal diagnosis: Patient is a pleasant 73-year-old male came in with complaints of severe abdominal pain the epigastric area radiating to the back. Patient pain was severe sharp in nature. Patient is found to have pancreatitis with elevated lipase of around 2010 as well as elevated amylase along with elevated liver enzymes, ultrasound and CAT scan did show cholelithiasis and possible cholecystitis and possibility of choledocholithiasis and ascending cholangitis with elevated liver enzymes. Liver enzymes are coming down today. Patient was later found to be bacteremic presently E. coli. Patient is ALLERGIC to penicillins because of which I started him on Rocephin 2 g. Patient is feeling much better patient almost completely resolved nausea resolved patient was ford ving nausea and vomiting patient will be started on clear liquid diet advance as tolerated and patient will be nothing by mouth tonight for either ERCP a cholecystectomy tomorrow. Patient did not have any fever or leukocytosis 09/16/2019 Patient is lying in bed in no acute distress with at the bedside. Following closely with surgery. Patient states that he continues to have epigastric discomfort with each meal and is currently on clear liquids. Patient denies any vomiting or nausea. Patient denies having bowel movements but states that he is passing gas. Patient is scheduled to have gallbladder removal in the morning. Amylase today is 515. ALT and AST continue to be elevated. Objective - Vital Signs Vital signs: Vital Signs Temp 99.8 F H 09/16/19 05:14 Pulse 82 09/16/19 05:14 Resp 18 09/16/19 08:00 BP 92/58 09/16/19 05:14 Pulse Ox 95 09/16/19 05:14 Intake & Output 09/15/19 09/16/19 09/16/19 18:59 06:59 18:59 Intake Total 300 Output Total 0 Balance 300 0 Intake: Oral 300 Output: Stool 0 Other: Voiding Method Toilet Toilet Toilet # Voids 1 2 - Exam GENERAL: The patient is alert and oriented x3, not in any acute distress. Well developed, well nourished. HEENT: Pupils are round and equally reacting to light. EOMI. No scleral icterus. No conjunctival pallor. Normocephalic, atraumatic. No pharyngeal erythema. No thyromegaly. CARDIOVASCULAR: S1 and S2 present. No murmurs, rubs, or gallops. PULMONARY: Chest is clear to auscultation, no wheezing or crackles. ABDOMEN: Soft, nontender, nondistended, normoactive bowel sounds. No palpable organomegaly. MUSCULOSKELETAL: No joint swelling or deformity. EXTREMITIES: No cyanosis, clubbing, or pedal edema. NEUROLOGICAL: Gross neurological examination did not reveal any focal deficits. SKIN: No rashes. Yellow tone to the skin noted - Labs CBC & Chem 7: 09/16/19 07:54 09/16/19 07:54 Labs: Abnormal Lab Results - Last 24 Hours (Table) 09/15/19 09/16/19 09/16/19 Range/Units 21:10 07:54 07:54 RBC 3.90 L (4.30-5.90) m/uL Hgb 12.6 L D (13.0-17.5) gm/dL Hct 36.4 L (39.0-53.0) % Plt Count 116 L (150-450) k/uL POC Glucose (mg/dL) 183 H (75-99) mg/dL Total Bilirubin 6.5 H (0.2-1.3) mg/dL AST 179 H (17-59) U/L ALT 214 H (4-49) U/L Alkaline Phosphatase 170 H (38-126) U/L Total Protein 5.7 L (6.3-8.2) g/dL Albumin 2.8 L (3.5-5.0) g/dL Lipase 515 H (23-300) U/L 09/16/19 Range/Units 11:50 RBC (4.30-5.90) m/uL Hgb (13.0-17.5) gm/dL Hct (39.0-53.0) % Plt Count (150-450) k/uL POC Glucose (mg/dL) 165 H (75-99) mg/dL Total Bilirubin (0.2-1.3) mg/dL AST (17-59) U/L ALT (4-49) U/L Alkaline Phosphatase (38-126) U/L Total Protein (6.3-8.2) g/dL Albumin (3.5-5.0) g/dL Lipase (23-300) U/L Microbiology - Last 24 Hours (Table) 09/15/19 08:37 Blood Culture - Preliminary Blood No Growth after 24 hours 09/14/19 15:55 Blood Culture Gram Stain - Preliminary Blood Blood Culture - Preliminary Escherichia coli Assessment and Plan Assessment: -Sepsis and bacteremia secondary to cholecystitis and a possible ascending chola ngitis patient has E. coli bacteremia patient was started on Rocephin 2 g patient is ALLERGIC to penicillin able to tolerate Rocephin, repeat blood cultures are back and for today and tomorrow patient made the need for ERCP and/or cholecystectomy. Patient is scheduled for cholecystectomy in the morning -Cholelithiasis and possible cholecystitis. -Elevated liver enzymes probably secondary to his choledocholithiasis. GI was consulted will repeat liver enzymes again tomorrow. Liver enzymes are elevated, AST is 179, ALT 214 -Gallstone pancreatitis patient's symptoms are better with be started on diet and advance it as tolerated although patient will be nothing by mouth after midnight -Gastroesophageal reflux disease for which patient is on Protonix -hyperlipidemia -Hypertension -DVT prophylaxis: Ambulation, patient is ambulating in the hallway
[2019-09-16 16:57] LABS: Glucose,Whole Blood 163 mg/dL (75-99)
--- NOTE | 2019-09-16 18:13 | CONS ---
CONSULTATION DATE OF SERVICE: 09/16/2019 REASON FOR CONSULTATION: Severe right upper quadrant abdominal pain. HISTORY OF PRESENT ILLNESS: The patient is a 73-year-old pleasant white male who came to the emergency room complaining of severe right upper quadrant abdominal pain that started on Monday morning. The pain continued to progressively get worse and hence he came to the emergency room and was noted to have elevated amylase and lipase consistent with acute pancreatitis. He was also noted to have elevated LFTs and jaundice with a bilirubin of 7.1, and hence we are consulted for possible ERCP. The patient had 4 similar episodes in the last one-year duration. Each one lasted between 30 minutes and one hour, then subsided. The last episode, which happened two days ago, was the most intense and lasted much longer. He is feeling much better today. PAST MEDICAL HISTORY: His past medical history is significant for diabetes mellitus, hypertension, hyperlipidemia, and gastroesophageal reflux disease, psoriasis. PAST SURGICAL HISTORY: 1. Left knee surgery. 2. Right cataract surgery. 3. Right knee surgery. SOCIAL HISTORY: No smoking. No alcohol use. FAMILY HISTORY: Brother had skin cancer. MEDICATIONS: Medications at home include Proscar, Lipitor, multivitamin, Cozaar, Glucotrol, Glucophage and Januvia. ALLERGIES: SULFA, PENICILLIN. REVIEW OF SYSTEMS: CARDIOPULMONARY: No chest pain or shortness of breath. GENITOURINARY: No dysuria or hematuria. MUSCULOSKELETAL: Unremarkable other than chronic back pain. NEUROLOGY: Unremarkable. PSYCHIATRY: Unremarkable. ENT/VISION: Unremarkable. CONSTITUTIONAL: No recent weight loss. No fever, chills, night sweats. PHYSICAL EXAMINATION: He appears comfortable. No apparent distress. Vital signs are stable. Blood pressure is 138/77, pulse rate 88, temperature 97.6. HEENT examination unremarkable. Conjunctivae pink. Sclerae deeply icteric. Oral cavity no lesions. NECK: No JVD or lymph node enlargement. CHEST: Clear to auscultation. HEART: Regular rate and rhythm. ABDOMEN: Soft. Bowel sounds are positive. No organomegaly. Mild tenderness in the epigastric area. EXTREMITIES: No pedal edema. SKIN: No rashes. NEUROLOGIC: Alert and oriented x3. No focal deficits. LABS: Labs done yesterday at the time of admission to the hospital showed WBC was 6.5, hemoglobin 15.9, platelets 149. Bilirubin was 7. AST 189, ALT 256, alkaline phosphatase 190. Amylase was 473 and lipase was 3749. Today lipase is down to 515. T- bilirubin is down to 6.5. AST and ALT are 179 and 214, respectively. Ultrasound of the gallbladder did not show evidence of gallstones. Mild hepatic steatosis was noted. Slightly dilated common bile duct at 1.1 cm. IMPRESSION: This is a patient who presented to the hospital with acute onset of severe epigastric pain and right upper quadrant abdominal pain noted to have elevated amylase and lipase consistent with acute gallstone pancreatitis. He was also noted to have elevated LFTs as well as jaundice, most likely secondary to a common bile duct stone. Ultrasound did show evidence of gallstones and dilated CBD at 1.1 cm in diameter. Presently on broad- spectrum antibiotics. Symptoms are gradually improving and lipase has significantly improved. RECOMMENDATIONS: 1. Continue with broad-spectrum antibiotics. 2. Clear liquid diet. 3. Will proceed with ERCP tomorrow. I discussed with him risks, benefits and complications, and the patient is agreeable to it. Thank you for this consultation. MMODL / IJN: [id number] /
[2019-09-16] MEDS: FINASTERIDE 5 MG TAB PO SCH (20:28)
[2019-09-16] MEDS: LATANOPROST 0.005% OPHTH DROPS 2.5 ML BTL BOTH EYES SCH (20:28)
[2019-09-16 20:33] LABS: Glucose,Whole Blood 152 mg/dL (75-99)
[2019-09-17] MEDS ORDERED: DEXAMETHASONE SOD PHOSPHATE 10 MG/ML 1 ML VIAL IV ONE (06:00)
[2019-09-17] MEDS ORDERED: ONDANSETRON 4 MG/2 ML VIAL IVP ONE (06:00)
[2019-09-17 06:58] LABS: Glucose,Whole Blood 161 mg/dL (75-99)
[2019-09-17] MEDS: PANTOPRAZOLE 40 MG/10 ML VIAL IV SCH (08:04)
[2019-09-17] MEDS: SODIUM CHLORIDE 0.9% 1,000 ML IV SCH ×2 (08:04→21:25)
[2019-09-17] MEDS: LACTATED RINGERS 1,000 ML IV SCH ×2 (08:04→21:24)
[2019-09-17] MEDS: INSULIN ASPART (NovoLOG) 100 UNIT/ML VIAL SQ SCH ×4 (08:07→21:24)
--- NOTE | 2019-09-17 08:22 | P.PN ---
Progress Note - Text Progress Note Date: 09/16/19 the patient feels slightly better. He lhe looks slightly less jaundice. Apparently ate a breakfast. His ERCP was scheduled for today however will be postponed until tomorrow. On exam his vital signs are stable. His evidence soft. Patient will undergo ERCP tomorrow. We will schedule him for laparoscopic cholecystectomy after this.
--- NOTE | 2019-09-17 08:23 | P.PN ---
Progress Note - Text Progress Note Date: 09/16/19 the patient feels slightly better today. His jaundice has improved. On exam his vital signs are stable. His abdomen soft. Patient is scheduled for ERCP in the a.m.
[2019-09-17 08:38] LABS: ALT 269 U/L (4-49); AST 212 U/L (17-59); African American GFR (CKD) >90 (>60 ml/min/1.73 sqM); Alkaline Phosphatase 224 U/L (38-126); Anion Gap 11 mmol/L; Blood Urea Nitrogen 10 mg/dL (9-20); Calcium 8.9 mg/dL (8.4-10.2); Carbon Dioxide 24 mmol/L (22-30); Chloride 104 mmol/L (98-107); Glucose 164 mg/dL (74-99); Non-African American GFR(CKD) 80 (>60 ml/min/1.73 sqM); Potassium 3.5 mmol/L (3.5-5.1); Sodium 139 mmol/L (137-145); Total Bilirubin 6.5 mg/dL (0.2-1.3); Total Protein 6.2 g/dL (6.3-8.2)
[2019-09-17] MEDS ORDERED: INDOMETHACIN 50MG SUPPOSITORY RECTAL ONE (09:30)
[2019-09-17] MEDS ORDERED: fentaNYL (PF) 50 MCG/ML 2 ML AMP ONE (12:16)
[2019-09-17] MEDS ORDERED: LIDOCAINE 1% INJ 10MG/ML (20 ML MDV) ONE (12:16)
[2019-09-17] MEDS ORDERED: PROPOFOL 10 MG/ML 20 ML VIAL IV ONE (12:16)
[2019-09-17] MEDS ORDERED: KETAMINE 10 MG/ML 20 ML VIAL ONE (12:16)
[2019-09-17] MEDS ORDERED: MIDAZOLAM 2 MG/2 ML VIAL ONE (12:16)
--- NOTE | 2019-09-17 12:24 | P.PN ---
Subjective Progress Note Date: 09/17/19 CHIEF COMPLAINT: Right upper quadrant pain HISTORY OF PRESENT ILLNESS: Patient seen and examined at the bedside with Dr. Becerril. Patient reports his abdominal pain is tolerable. Denies nausea or vomiting. He is nothing by mouth. Scheduled for ERCP today. Bilirubin 6.5. AST 212. ALT 269. Lipase 385. PHYSICAL EXAM: VITAL SIGNS: Reviewed. GENERAL: Well-developed in no acute distress. HEENT: Bilateral sclera icterus. Extraocular movements grossly intact. Moist buccal mucosa. Head is atraumatic, normocephalic. ABDOMEN: Soft. Nondistended. Mild tenderness to right upper quadrant NEUROLOGIC: Alert and oriented. Cranial nerves II through XII grossly intact. ASSESSMENT: 1. Gallstone pancreatitis 2. Choledocholithiasis 3. Hyperbilirubinemia 4. Transaminitis PLAN: -Continue antibiotics -Pain control -Monitor LFTs -Patient scheduled for ERCP today with Dr. Sheldon -Patient tentatively scheduled for laparoscopic cholecystectomy tomorrow with Dr. Becerril pending CMP results tomorrow AM Nurse practitioner note has been reviewed by physician. Signing provider agrees with the documented findings, assessment, and plan of care. Objective - Vital Signs Vital signs: Vital Signs Temp 98.9 F 09/17/19 07:00 Pulse 80 09/17/19 07:00 Resp 16 09/17/19 07:00 BP 126/68 09/17/19 07:00 Pulse Ox 97 09/17/19 07:00 Intake & Output 09/16/19 09/17/19 09/17/19 18:59 06:59 18:59 Intake Total 120 425 Output Total 4 Balance 116 425 Intake: Oral 120 425 Output: Urine 4 Stool 0 Other: Voiding Method Toilet # Voids 2 - Labs CBC & Chem 7: 09/16/19 07:54 09/17/19 07:59 Labs: Abnormal Lab Results - Last 24 Hours (Table) 09/16/19 09/16/19 09/17/19 Range/Units 16:55 20:17 06:56 Glucose (74-99) mg/dL POC Glucose (mg/dL) 163 H 152 H 161 H (75-99) mg/dL Total Bilirubin (0.2-1.3) mg/dL AST (17-59) U/L ALT (4-49) U/L Alkaline Phosphatase (38-126) U/L Total Protein (6.3-8.2) g/dL Albumin (3.5-5.0) g/dL Lipase (23-300) U/L 09/17/19 Range/Units 07:59 Glucose 164 H (74-99) mg/dL POC Glucose (mg/dL) (75-99) mg/dL Total Bilirubin 6.5 H (0.2-1.3) mg/dL AST 212 H (17-59) U/L ALT 269 H (4-49) U/L Alkaline Phosphatase 224 H (38-126) U/L Total Protein 6.2 L (6.3-8.2) g/dL Albumin 3.0 L (3.5-5.0) g/dL Lipase 385 H (23-300) U/L Microbiology - Last 24 Hours (Table) 09/15/19 08:37 Blood Culture - Preliminary Blood No Growth after 48 hours 09/16/19 07:54 Blood Culture - Preliminary Blood No Growth after 24 hours 09/14/19 15:55 Blood Culture Gram Stain - Final Blood Blood Culture - Final Escherichia coli
[2019-09-17] MEDS ORDERED: IOPAMIDOL-300 50ML BTL INJ ONE (12:30)
[2019-09-17] MEDS ORDERED: IV FLUID CONTINUATION 1,000 ML IV ONE (12:44)
--- NOTE | 2019-09-17 12:45 | P.PCN ---
Date of Procedure: 09/17/19 Procedure(s) Performed: Brief history: Patient is a 73-year-old white male, admitted hospital with acute onset of severe epigastric and right upper quadrant abdominal pain and acute biliary pancreatitis. He was noted to have elevated bilirubin up to 7.1 g/dL with elevated AST and ASTand E. coli bacteremia suggestive of ascending cholangitis. He is a breast rectum antibiotics.. CT of the abdomen showed evidence of gallstones and biliary ductal dilation. His and scheduled for an ERCP for possible CBD stones. Procedure performed: ERCP With biliary sphincterotomy and balloon stone extraction Preoperative diagnoses:Acute biliary pancreatitis/ascending cholangitis/elevated LFTs and jaundice IV sedation per anesthesia: Procedure: After informed consent was obtained from the patient and after the risks benefits and complications including bleeding perforation and pancreatitis explained in detail the patient was brought into the endoscopy unit. The patient was placed in prone position and IV conscious sedation was administered by anesthesia under continuous monitoring. The Olympus side-viewing duodenoscope was then inserted into the mouth and esophagus intubated without any difficulty. The scope was gradually advanced into the stomach and duodenum. The major papilla was identified without any difficulty.initial cannulation resulted in the base of the pancreatic duct that appeared normal. Subsequent cannulation resulted in opacification of the common bile duct that was dilated with a 1 cm filling defect in the distal common bile duct. At this time a biliary sphincterotomy was performed over a guidewire and was extended to 1 cm. Following this an 11 mm balloon was passed over the guidewire, gently inflated and withdrawn and a 1 cm CBD stone was seen exiting the ampulla. Repeat occlusion cholangio-Balwinder was performed and no other filling defects were identified. Patient tolerated the procedure well. Impression: Normal pancreatic duct Dilated common bile duct with a 1 cm filling defect in the distal common bile duct, status post biliary sphincterotomy and balloon stone extraction as described above Recommendations: The findings of this examination were discussed with the patient as well as a family. He'll be continued on Bactrim antibiotics. He will be started on clear liquid diet. Repeat labs in the morning.
[2019-09-17] MEDS ORDERED: POTASSIUM CHLORIDE ER 20 MEQ TAB.ER PO STA (12:51)
--- NOTE | 2019-09-17 13:12 | FL ---
EXAMINATION TYPE: FL ERCP DATE OF EXAM: 09/17/2019 CLINICAL HISTORY: Stone removal. CBD stones. TECHNIQUE: Fluoroscopy. COMPARISON: CT abdomen and pelvis 3 days ago. FINDINGS: Fluoroscopic guidance was provided during ERCP procedure performed by Dr. Sheldon. A total of 35 seconds of fluoroscopic time was utilized during the procedure single spot fluoroscopic intraop erative image is acquired. Single image shows filling defect distal common bile duct could reflect la rge stone. IMPRESSION: As Above.
[2019-09-17 13:40] LABS: Glucose,Whole Blood 166 mg/dL (75-99)
--- NOTE | 2019-09-17 15:22 | XR ---
EXAMINATION TYPE: XR chest 1V portable DATE OF EXAM: 09/17/2019 COMPARISON: 09/14/2019 HISTORY: Abdominal pain TECHNIQUE: Single view FINDINGS: Heart is normal. Lungs are clear of infiltrate. There is no pleural effusion. There are no hilar masses. Bony thorax is intact. IMPRESSION: Normal chest. No change.
--- NOTE | 2019-09-17 15:46 | P.PN ---
Subjective 73-year-old male came in with complaints of severe abdominal pain the epigastric area radiating to the back. Patient pain was severe sharp in nature. Patient is found to have pancreatitis with elevated lipase of around 2010 as well as elevated amylase along with elevated liver enzymes, ultrasound and CAT scan did show cholelithiasis and possible cholecystitis and possibility of choledocholithiasis and ascending cholangitis with elevated liver enzymes. Liver enzymes are coming down today. Patient was later found to be bacteremic presently E. coli. Patient is ALLERGIC to penicillins because of which I started him on Rocephin 2 g. Patient is feeling much better patient almost completely resolved nausea resolved patient was having nausea and vomiting patient will be started on clear liquid diet advance as tolerated and patient will be nothing by mouth tonight for either ERCP a cholecystectomy tomorrow. Patient did not have any fever or leukocytosis 09/16/2019 Patient is lying in bed in no acute distress with at the bedside. Following closely with surgery. Patient states that he continues to have epigastric discomfort with each meal and is currently on clear liquids. Patient denies any vomiting or nausea. Patient denies having bowel movements but states that he is passing gas. Patient is scheduled to have gallbladder removal in the morning. Amylase today is 515. ALT and AST continue to be elevated. 09/17/2030 Patient has E. coli which is pansensitive. Patient underwent ERCP and extraction of a biliary stone. Patient is feeling much better patient looks icteric, with yellowish discoloration but otherwise feeling much better Constitutional: Denied any fatigue denied any fever. Cardio vascular: denied any chest pain, palpitations Gastrointestinal denied any nausea vomiting Pulmonary: Denied any shortness of breath cough Neurologic denied any new focal deficits All inpatient medications were reviewed and appropriate changes in these medications as dictated in the interval history and assessment and plan. Objective - Vital Signs Vital signs: Vital Signs Temp 98.0 F 09/17/19 15:00 Pulse 56 L 09/17/19 15:00 Resp 18 09/17/19 15:00 BP 122/66 09/17/19 15:00 Pulse Ox 95 09/17/19 15:00 Intake & Output 09/16/19 09/17/19 09/17/19 18:59 06:59 18:59 Intake Total 120 425 840 Output Total 4 Balance 116 425 840 Intake: IV 300 Oral 120 425 540 Output: Urine 4 Stool 0 Other: Voiding Method Toilet # Voids 2 3 - Exam GENERAL: The patient is alert and oriented x3, not in any acute distress. Well developed, well nourished. HEENT: Pupils are round and equally reacting to light. EOMI. does have scleral icterus. No conjunctival pallor. Normocephalic, atraumatic. No pharyngeal erythema. No thyromegaly. CARDIOVASCULAR: S1 and S2 present. No murmurs, rubs, or gallops. PULMONARY: Chest is clear to auscultation, no wheezing or crackles. ABDOMEN: Soft, nontender, nondistended, normoactive bowel sounds. No palpable organomegaly. MUSCULOSKELETAL: No joint swelling or deformity. EXTREMITIES: No cyanosis, clubbing, or pedal edema. NEUROLOGICAL: Gross neurological examination did not reveal any focal deficits. SKIN: No rashes. Yellow discoloration - Labs CBC & Chem 7: 09/16/19 07:54 09/17/19 07:59 Labs: Abnormal Lab Results - Last 24 Hours (Table) 09/16/19 09/16/19 09/17/19 Range/Units 16:55 20:17 06:56 Glucose (74-99) mg/dL POC Glucose (mg/dL) 163 H 152 H 161 H (75-99) mg/dL Total Bilirubin (0.2-1.3) mg/dL AST (17-59) U/L ALT (4-49) U/L Alkaline Phosphatase (38-126) U/L Total Protein (6.3-8.2) g/dL Albumin (3.5-5.0) g/dL Lipase (23-300) U/L 09/17/19 09/17/19 Range/Units 07:59 13:38 Glucose 164 H (74-99) mg/dL POC Glucose (mg/dL) 166 H (75-99) mg/dL Total Bilirubin 6.5 H (0.2-1.3) mg/dL AST 212 H (17-59) U/L ALT 269 H (4-49) U/L Alkaline Phosphatase 224 H (38-126) U/L Total Protein 6.2 L (6.3-8.2) g/dL Albumin 3.0 L (3.5-5.0) g/dL Lipase 385 H (23-300) U/L Microbiology - Last 24 Hours (Table) 09/15/19 08:37 Blood Culture - Preliminary Blood No Growth after 48 hours 09/16/19 07:54 Blood Culture - Preliminary Blood No Growth after 24 hours 09/14/19 15:55 Blood Culture Gram Stain - Final Blood Blood Culture - Final Escherichia coli Assessment and Plan Plan: -Sepsis and bacteremia secondary to cholecystitis and a possible ascending cholangitis patient has E. coli bacteremia patient , E. coli is sensitive to Rocephin and repeat blood cultures are negative to patient is status post ERCP for extraction of common bile duct stone and will undergo cholecystectomy tomorrow and if cleared by general surgery patient will be discharged on oral antibiotics will need total duration of 14 days of antibiotics. -Cholelithiasis and possible cholecystitis. -Elevated liver enzymes probably secondary to his choledocholithiasis patient is status post ERCP and extraction of common bile duct stone -Gallstone pancreatitis improved -Gastroesophageal reflux disease for which patient is on Protonix -hyperlipidemia -Hypertension DVT prophylaxis: Ambulation patient is ambulating in the hallway
[2019-09-17 17:02] LABS: Glucose,Whole Blood 146 mg/dL (75-99)
[2019-09-17 21:10] LABS: Glucose,Whole Blood 150 mg/dL (75-99)
[2019-09-17] MEDS: FINASTERIDE 5 MG TAB PO SCH (21:22)
[2019-09-17] MEDS: LATANOPROST 0.005% OPHTH DROPS 2.5 ML BTL BOTH EYES SCH (21:23)
[2019-09-18] MEDS: SODIUM CHLORIDE 0.9% 1,000 ML IV SCH ×2 (05:41→16:53)
[2019-09-18 07:00] LABS: Glucose,Whole Blood 131 mg/dL (75-99)
[2019-09-18] MEDS: ENOXAPARIN 40 MG/0.4 ML SYRINGE SQ SCH (07:00)
[2019-09-18 07:26] LABS: Basophils % (A) 0 %; Eosinophils # (A) 0.2 k/uL (0-0.7); Eosinophils % (A) 3 %; HCT 38.9 % (39.0-53.0); HGB 13.5 gm/dL (13.0-17.5); Lymphocytes # (A) 0.6 k/uL (1.0-4.8); Lymphocytes % (A) 12 %; MCHC 34.6 g/dL (31.0-37.0); MCV 92.3 fL (80.0-100.0); Mean Platelet Volume 7.8; Monocytes # (A) 0.4 k/uL (0-1.0); Monocytes % (A) 8 %; Neutrophils # (A) 3.9 k/uL (1.3-7.7); Neutrophils % (A) 75 %; Platelet Count 160 k/uL (150-450); RBC 4.21 m/uL (4.30-5.90); RDW 12.6 % (11.5-15.5); WBC 5.2 k/uL (3.8-10.6)
[2019-09-18] MEDS ORDERED: KETOROLAC 30 MG/ML 1 ML VIAL ONE (07:40)
[2019-09-18] MEDS ORDERED: ROCURONIUM BROMIDE 10 MG/ML 10 ML VIAL IV ONE (07:40)
[2019-09-18] MEDS ORDERED: SUCCINYLCHOLINE CHLORIDE 100 MG/5 ML SYR IV ONE (07:40)
[2019-09-18] MEDS ORDERED: NEOSTIGMINE 1 MG/ML 10 ML VIAL ONE (07:40)
[2019-09-18] MEDS ORDERED: MIDAZOLAM 2 MG/2 ML VIAL ONE (07:40)
[2019-09-18] MEDS ORDERED: fentaNYL (PF) 50 MCG/ML 2 ML AMP ONE (07:40)
[2019-09-18] MEDS ORDERED: GLYCOPYRROLATE 0.2 MG/ML 2 ML VIAL ONE (07:40)
[2019-09-18] MEDS ORDERED: PROPOFOL 10 MG/ML 20 ML VIAL IV ONE (07:40)
[2019-09-18] MEDS ORDERED: ceFAZolin 1,000 MG VIAL ONE (07:40)
[2019-09-18] MEDS ORDERED: ONDANSETRON 4 MG/2 ML VIAL ONE (07:40)
[2019-09-18] MEDS ORDERED: DEXAMETHASONE SOD PHOS (MDV) 100 MG/10 ML VIAL ONE (07:40)
[2019-09-18] MEDS ORDERED: LIDOCAINE 1% INJ 10MG/ML (20 ML MDV) ONE (07:40)
[2019-09-18] MEDS ORDERED: IV FLUID CONTINUATION 1,000 ML IV ONE (07:45)
[2019-09-18 07:49] LABS: Albumin 2.9 g/dL (3.5-5.0); Calcium 8.8 mg/dL (8.4-10.2); Potassium 3.9 mmol/L (3.5-5.1); Total Bilirubin 3.2 mg/dL (0.2-1.3); Total Protein 5.9 g/dL (6.3-8.2)
[2019-09-18] MEDS ORDERED: SODIUM CHLORIDE 0.9% 50 ML with ceFAZolin 2,000 MG IV ONE ×2 (08:02)
[2019-09-18] MEDS ORDERED: BUPIVACAINE (PF) 0.25% 30 ML VIAL SQ ONE (08:04)
[2019-09-18] MEDS ORDERED: LACTATED RINGERS 1,000 ML IV ONE ×2 (08:09)
[2019-09-18] MEDS ORDERED: HYDROmorphone 1 MG/ML 1 ML SYRINGE IVP PRN (08:28)
--- NOTE | 2019-09-18 08:28 | P.OP ---
Date of Procedure: 09/18/19 Preoperative Diagnosis: Cholelithiasis Cholecystitis Postoperative Diagnosis: Cholelithiasis Cholecystitis Procedure(s) Performed: Laparoscopic cholecystectomy Anesthesia: JA Surgeon: Charlie Becerril Estimated Blood Loss (ml): 5 Pathology: other (Gallbladder) Condition: stable Disposition: PACU Description of Procedure: The patient was placed on the operating table. The patient received a general endotracheal tube anesthesia. The patients abdomen was prepped and draped in the usual sterile fashion. Through an infraumbilical stab incision, the fascia of the anterior abdominal wall was grasped with a pair of Kochers and then the Veress needle was placed in the peritoneal cavity. Position of the Veress needle was confirmed with positive drop test. The abdomen was then insufflated. After adequate insufflation, the 10 mm trocar was placed in the peritoneal cavity. Following this the laparoscope was placed in the peritoneal cavity. The patient was placed in the head-up, right side up position and then a 5 mm trocar was placed in the right lateral and right subcostal position under direct visualization. A 8 mm trocar was placed in the epigastric position. The gallbladder was grasped in the fundus and infundibulum. Traction on the gallbladder was placed in the lateral and the cephalad positions. The triangle of Calot was visualized.. The cystic duct was bluntly dissected until the union of the cystic duct and common bile duct wa s seen. A critical view of safety was achieved. The cystic duct was then divided and sealed with the Harmonic scissors. A PDS Endoloop was then placed throughout the cystic duct stump. The cystic artery divided and sealed with the Harmonic scissors. The gallbladder was then removed from the liver bed using Harmonic scissors. The gallbladder was then extracted through the epigastric port site. Operative field was checked for any bleeding spots and Harmonic scissors was used to coagulate the liver bed. The abdomen was irrigated. The trocars were removed. The skin was closed using interrupted 3-0 Vicryl suture. Dermabond dressing were applied. The patient tolerated the procedure well.
[2019-09-18] MEDS: INSULIN ASPART (NovoLOG) 100 UNIT/ML VIAL SQ SCH ×4 (10:25→20:41)
[2019-09-18] MEDS: PANTOPRAZOLE 40 MG/10 ML VIAL IV SCH (10:43)
[2019-09-18 11:57] LABS: Glucose,Whole Blood 150 mg/dL (75-99)
[2019-09-18 13:31] VITALS: RESP 20
--- NOTE | 2019-09-18 14:52 | P.PN ---
Subjective 73-year-old male came in with complaints of severe abdominal pain the epigastric area radiating to the back. Patient pain was severe sharp in nature. Patient is found to have pancreatitis with elevated lipase of around 2011 as well as elevated amylase along with elevated liver enzymes, ultrasound and CAT scan did show cholelithiasis and possible cholecystitis and possibility of choledocholithiasis and ascending cholangitis with elevated liver enzymes. Liver enzymes are coming down today. Patient was later found to be bacteremic presently E. coli. Patient is ALLERGIC to penicillins because of which I started him on Rocephin 2 g. Patient is feeling much better patient almost completely resolved nausea resolved patient was having nausea and vomiting patient will be started on clear liquid diet advance as tolerated and patient will be nothing by mouth tonight for either ERCP a cholecystectomy tomorrow. Patient did not have any fever or leukocytosis 09/16/2019 Patient is lying in bed in no acute distress with at the bedside. Following closely with surgery. Patient states that he continues to have epigastric discomfort with each meal and is currently on clear liquids. Patient denies any vomiting or nausea. Patient denies having bowel movements but states that he is passing gas. Patient is scheduled to have gallbladder removal in the morning. Amylase today is 515. ALT and AST continue to be elevated. 09/17/2019 Patient has E. coli which is pansensitive. Patient underwent ERCP and extraction of a biliary stone. Patient is feeling much better patient looks icteric, with yellowish discoloration but otherwise feeling much better 09/18/2019 Patient had leprose, cholecystectomy clinically doing well passing gas patient will be discharged tomorrow. Constitutional: Denied any fatigue denied any fever. Cardio vascular: denied any chest pain, palpitations Gastrointestinal denied any nausea vomiting Pulmonary: Denied any shortness of breath cough Neurologic denied any new focal deficits All inpatient medications were reviewed and appropriate changes in these medications as dictated in the interval history and assessment and plan. Objective - Vital Signs Vital signs: Vital Signs Temp 97.7 F 09/18/19 12:20 Pulse 68 09/18/19 12:20 Resp 20 09/18/19 12:20 BP 134/66 09/18/19 12:20 Pulse Ox 99 09/18/19 12:20 Intake & Output 09/17/19 09/18/19 09/18/19 18:59 06:59 18:59 Intake Total 840 160 750 Output Total 5 Balance 840 160 745 Intake: IV 300 750 Intake, IV Titration 160 Amount Lactated Ringers 1,000 ml 160 @ 20 mls/hr IV .Q24H [facility] Rx#:[id number] Oral 540 Output: Estimated Blood Loss 5 Other: Voiding Method Toilet # Voids 3 2 2 # Bowel Movements 1 - Exam GENERAL: The patient is alert and oriented x3, not in any acute distress. Well developed, well nourished. HEENT: Pupils are round and equally reacting to light. EOMI. does have scleral icterus. No conjunctival pallor. Normocephalic, atraumatic. No pharyngeal erythema. No thyromegaly. CARDIOVASCULAR: S1 and S2 present. No murmurs, rubs, or gallops. PULMONARY: Chest is clear to auscultation, no wheezing or crackles. ABDOMEN: Soft, nontender, nondistended, normoactive bowel sounds. No palpable organomegaly. MUSCULOSKELETAL: No joint swelling or deformity. EXTREMITIES: No cyanosis, clubbing, or pedal edema. NEUROLOGICAL: Gross neurological examination did not reveal any focal deficits. SKIN: No rashes. Yellow discoloration - Labs CBC & Chem 7: 09/18/19 06:53 09/18/19 06:53 Labs: Abnormal Lab Results - Last 24 Hours (Table) 09/17/19 09/17/19 09/18/19 Range/Units 16:57 21:03 06:53 RBC (4.30-5.90) m/uL Hct (39.0-53.0) % Lymphocytes # (1.0-4.8) k/uL Glucose 147 H (74-99) mg/dL POC Glucose (mg/dL) 146 H 150 H (75-99) mg/dL Total Bilirubin 3.2 H (0.2-1.3) mg/dL AST 92 H (17-59) U/L ALT 199 H (4-49) U/L Alkaline Phosphatase 204 H (38-126) U/L Total Protein 5.9 L (6.3-8.2) g/dL Albumin 2.9 L (3.5-5.0) g/dL Lipase 359 H (23-300) U/L 09/18/19 09/18/19 09/18/19 Range/Units 06:53 06:56 11:52 RBC 4.21 L (4.30-5.90) m/uL Hct 38.9 L (39.0-53.0) % Lymphocytes # 0.6 L (1.0-4.8) k/uL Glucose (74-99) mg/dL POC Glucose (mg/dL) 131 H 150 H (75-99) mg/dL Total Bilirubin (0.2-1.3) mg/dL AST (17-59) U/L ALT (4-49) U/L Alkaline Phosphatase (38-126) U/L Total Protein (6.3-8.2) g/dL Albumin (3.5-5.0) g/dL Lipase (23-300) U/L Microbiology - Last 24 Hours (Table) 09/15/19 08:37 Blood Culture - Preliminary Blood No Growth after 72 hours 09/16/19 07:54 Blood Culture - Preliminary Blood No Growth after 48 hours Assessment and Plan Plan: -Sepsis and bacteremia secondary to cholecystitis and a possible ascending cholangitis patient has E. coli bacteremia patient , E. coli is sensitive to Rocephin and repeat blood cultures are negative to patient is status post ERCP for extraction of common bile duct stone and did undergo cholecystectomy today and if cleared by general surgery patient will be discharged on oral antibiotics will need total duration of 14 days of antibiotics. Patient probably will need 10 more days of antibiotics tomorrow from tomorrow -Cholelithiasis and possible cholecystitis. -Elevated liver enzymes probably secondary to his choledocholithiasis patient is status post ERCP and extraction of common bile duct stone -Gallstone pancreatitis improved -Gastroesophageal reflux disease for which patient is on Protonix -hyperlipidemia -Hypertension DVT prophylaxis: Ambulation patient is ambulating in the hallway
[2019-09-18 17:00] LABS: Glucose,Whole Blood 220 mg/dL (75-99)
[2019-09-18 20:26] LABS: Glucose,Whole Blood 193 mg/dL (75-99)
[2019-09-18] MEDS: FINASTERIDE 5 MG TAB PO SCH (20:40)
[2019-09-18] MEDS: LATANOPROST 0.005% OPHTH DROPS 2.5 ML BTL BOTH EYES SCH (20:40)
[2019-09-19] MEDS: SODIUM CHLORIDE 0.9% 1,000 ML IV SCH ×2 (02:40→12:41)
[2019-09-19 06:22] VITALS: BP 116/67; PULSE 82; TEMP 98.9
[2019-09-19 07:19] LABS: Glucose,Whole Blood 173 mg/dL (75-99)
[2019-09-19] MEDS: PANTOPRAZOLE 40 MG/10 ML VIAL IV SCH (07:47)
[2019-09-19] MEDS: ENOXAPARIN 40 MG/0.4 ML SYRINGE SQ SCH (07:51)
[2019-09-19] MEDS: INSULIN ASPART (NovoLOG) 100 UNIT/ML VIAL SQ SCH ×2 (07:52→12:41)
[2019-09-19] MEDS ORDERED: HYDROcodone/APAP 5-325MG 1 EACH TAB PO PRN (08:19)
[2019-09-19 08:57] LABS: Basophils % (A) 0 %; Eosinophils # (A) 0.1 k/uL (0-0.7); Eosinophils % (A) 1 %; HCT 41.8 % (39.0-53.0); HGB 14.2 gm/dL (13.0-17.5); Lymphocytes % (A) 14 %; MCH 31.9 pg (25.0-35.0); MCV 93.8 fL (80.0-100.0); Mean Platelet Volume 7.8; Monocytes # (A) 0.6 k/uL (0-1.0); Monocytes % (A) 8 %; Neutrophils # (A) 5.4 k/uL (1.3-7.7); Neutrophils % (A) 74 %; Platelet Count 223 k/uL (150-450); RBC 4.45 m/uL (4.30-5.90); RDW 12.8 % (11.5-15.5); WBC 7.3 k/uL (3.8-10.6)
[2019-09-19 09:04] LABS: Albumin 3.3 g/dL (3.5-5.0); Calcium 8.6 mg/dL (8.4-10.2); Potassium 3.8 mmol/L (3.5-5.1); Total Bilirubin 2.1 mg/dL (0.2-1.3); Total Protein 6.4 g/dL (6.3-8.2)
[2019-09-19] MEDS: LACTATED RINGERS 1,000 ML IV SCH (09:12)
--- NOTE | 2019-09-19 09:58 | P.PN ---
Subjective Progress Note Date: 09/19/19 CHIEF COMPLAINT: Right upper quadrant pain HISTORY OF PRESENT ILLNESS: Patient seen and examined at the bedside with Dr. Becerril. Patient is status post laparoscopic cholecystectomy. Postop day #1. Patient reports abdominal pain is tolerable. Tolerating diet without nausea or vomiting. Vital signs are stable. He's afebrile. W BC 7.3. Hemoglobin 14.2. Total bilirubin 2.1. AST 74. ALT 146. PHYSICAL EXAM: VITAL SIGNS: Reviewed. GENERAL: Well-developed in no acute distress. HEENT: Bilateral sclera icterus. Extraocular movements grossly intact. Moist buccal mucosa. Head is atraumatic, normocephalic. ABDOMEN: Soft. Nondistended. Appropriate surgical tenderness. Incisions clean dry and intact. NEUROLOGIC: Alert and oriented. Cranial nerves II through XII grossly intact. ASSESSMENT: 1. Gallstone pancreatitis 2. Choledocholithiasis 3. Hyperbilirubinemia 4. Transaminitis PLAN: Diet as tolerated Pain control Stable for DC home today from a surgical standpoint. Patient to follow up in 1 week. Nurse practitioner note has been reviewed by physician. Signing provider agrees with the documented findings, assessment, and plan of care. Objective - Vital Signs Vital signs: Vital Signs Temp 98.9 F 09/19/19 05:00 Pulse 82 09/19/19 05:00 Resp 20 09/19/19 05:00 BP 116/67 09/19/19 05:00 Pulse Ox 95 09/19/19 05:00 Intake & Output 09/18/19 09/19/19 09/19/19 18:59 06:59 18:59 Intake Total 750 300 Output Total 5 Balance 745 300 Intake: IV 750 Oral 300 Output: Estimated Blood Loss 5 Other: Voiding Method Toilet Toilet # Voids 3 1 # Bowel Movements 0 - Labs CBC & Chem 7: 09/19/19 08:38 09/19/19 08:38 Labs: Abnormal Lab Results - Last 24 Hours (Table) 09/18/19 09/18/19 09/18/19 Range/Units 11:52 16:57 20:09 Glucose (74-99) mg/dL POC Glucose (mg/dL) 150 H 220 H 193 H (75-99) mg/dL Total Bilirubin (0.2-1.3) mg/dL AST (17-59) U/L ALT (4-49) U/L Alkaline Phosphatase (38-126) U/L Albumin (3.5-5.0) g/dL 09/19/19 09/19/19 Range/Units 07:17 08:38 Glucose 179 H (74-99) mg/dL POC Glucose (mg/dL) 173 H (75-99) mg/dL Total Bilirubin 2.1 H (0.2-1.3) mg/dL AST 74 H (17-59) U/L ALT 146 H (4-49) U/L Alkaline Phosphatase 198 H (38-126) U/L Albumin 3.3 L (3.5-5.0) g/dL Microbiology - Last 24 Hours (Table) 09/15/19 08:37 Blood Culture - Preliminary Blood No Growth after 72 hours 09/16/19 07:54 Blood Culture - Preliminary Blood No Growth after 48 hours
[2019-09-19 11:53] LABS: Glucose,Whole Blood 231 mg/dL (75-99)
--- NOTE | 2019-09-19 12:15 | PN ---
PROGRESS NOTE DATE OF SERVICE: 09/19/2019 Patient is a 73-year-old pleasant white male admitted to hospital with acute biliary pancreatitis and jaundice/elevated LFTs. He underwent an ERCP 2 days ago that showed a 1 cm CBD stone that was extracted. He underwent laparoscopic cholecystectomy yesterday. This morning, he complains of mild epigastric pain. No nausea, vomiting. PHYSICAL EXAMINATION: HEENT EXAMINATION: Unremarkable. Conjunctivae pink. Sclerae anicteric. Oral cavity no lesions. NECK: No JVD or lymph node enlargement. CHEST: Clear to auscultation. HEART: Regular rate and rhythm. ABDOMEN: Soft. Bowel sounds are positive. No organomegaly. There was mild tenderness in the epigastric area. EXTREMITIES: No pedal edema. SKIN: No rashes. NEUROLOGIC: Alert and oriented x3. No focal deficits. LABS: Labs from today: WBC 7.3, hemoglobin 14.2, platelets are normal. T-bilirubin is down to 2.1. ALT and AST are 74 and 146 respectively. IMPRESSION: 1. Choledocholithiasis, status post ERCP with CBD stone extraction 2 days ago. Bilirubin is down to 2.1. ALT and AST have significantly improved. 2. Acute biliary pancreatitis, resolved. 3. Gallstones, status post laparoscopic cholecystectomy yesterday, doing well. RECOMMENDATIONS: 1. Advance diet as tolerated. 2. Monitor labs closely. 3. At this time we will sign off. Please call us if needed. Thank you for this consultation. MMODL / IJN: [id number] /
--- NOTE | 2019-09-19 13:15 | P.DS ---
Providers Date of admission: 09/14/19 18:41 Expected date of discharge: 09/19/19 Attending physician: Otilia Mcmahon Consults: 09/15/19 12:39 Consult Physician Routine Consulting Provider: Jaxson Myles Consult Reason/Comments: possible ERCP Do you want consulting provider notified?: Yes 09/15/19 12:40 Consult Physician Routine Consulting Provider: Charlie Becerril Consult Reason/Comments: possible gallbladder removal Do you want consulting provider notified?: Already Contacted Primary care physician: Libby Garcia [facility] Course: Final diagnosis -Sepsis and bacteremia secondary to cholecystitis and a possible ascending cholangitis -Cholelithiasis and possible cholecystitis -Elevated liver enzymes probably secondary to his choledocholithiasis patient is status post ERCP and extraction of common bile duct stone -Gallstone pancreatitis -Gastroesophageal reflux disease -hyperlipidemia -Hypertension -DVT prophylaxis Discharge disposition Patient is being discharged in a stable condition with guarded prognosis to home and will follow-up with surgery, primary care provider, and GI in the outpatient setting. Patient will continue on oral antibiotics in the form of Ceftin twice daily for the next 10 days. Total time taken is 35 minutes. History of present illness This is a 73-year-old male who recently was admitted for severe abdominal pain and was found to have pancreatitis and was being closely monitored. CAT scan showed cholelithiasis and possible cholecystitis with possible coital cholelithiasis and ascending cholangitis along with elevated liver enzymes. Multiple medical consultations were following. Patient was found to have E. coli in the blood cultures with repeat blood cultures thus far remaining negative after 72 hours. Patient will continue on oral Ceftin twice daily for the next 10 days. Patient will follow-up with Dr. Garcia in the outpatient setting upon discharge. Currently patient denies any chest pain, shortness of breath, or palpitations. Patient is afebrile. Patient denies any nausea or vomiting and has been tolerating diet. Patient is advancing slowly on his diet. Patient states that he is passing gas but has not had a bowel movement. Patient denies any feelings of constipation. Currently patient's condition is stable and is ready for discharge today. at the bedside and agrees with the treatment plan. On exam vital signs are stable. In this 98.9F, pulse is 82, respirations are 20, blood pressure 116/67, oxygen saturation is 95% on room air. Cardio S1, S2 are present. Respiratory system shows clear to auscultation. Abdomen is soft with mild diffuse tenderness noted on deep palpation. Nervous system shows no focal deficits. Please refer to medication reconciliation sheet for a list of medications. Patient Condition at Discharge: Stable Plan - Discharge Summary Discharge Rx Participant: No New Discharge Prescriptions: New Hydrocodone/Acetaminophen [Beulah 5-325] 1 tab PO Q6HR PRN 3 Days #12 tab PRN Reason: Pain Cefuroxime Axetil [Ceftin] 500 mg PO BID 10 Days #20 tab Continue Finasteride [Proscar] 5 mg PO HS Multivitamins, Thera [Multivitamin (formulary)] 1 tab PO DAILY Omeprazole 20 mg PO DAILY sitaGLIPtin [Januvia] 100 mg PO DAILY glipiZIDE XL [Glucotrol XL] 5 mg PO BID Aspirin EC [Ecotrin Low Dose] 81 mg PO DAILY metFORMIN HCL ER [Glucophage Xr] 1,000 mg PO AC-SUPPER Latanoprost/Pf [Latanoprost 0.005% Eye Drop] 1 drop BOTH EYES HS Discontinued Losartan [Cozaar] 25 mg PO DAILY Atorvastatin [Lipitor] 10 mg PO HS Discharge Medication List Finasteride [Proscar] 5 mg PO HS 03/18/15 [History] Multivitamins, Thera [Multivitamin (formulary)] 1 tab PO DAILY 06/06/18 [History] Omeprazole 20 mg PO DAILY 06/06/18 [History] Aspirin EC [Ecotrin Low Dose] 81 mg PO DAILY 09/14/19 [History] Latanoprost/Pf [Latanoprost 0.005% Eye Drop] 1 drop BOTH EYES HS 09/14/19 [History] glipiZIDE XL [Glucotrol XL] 5 mg PO BID 09/14/19 [History] metFORMIN HCL ER [Glucophage Xr] 1,000 mg PO AC-SUPPER 09/14/19 [History] sitaGLIPtin [Januvia] 100 mg PO DAILY 09/14/19 [History] Cefuroxime Axetil [Ceftin] 500 mg PO BID 10 Days #20 tab 09/19/19 [Rx] Hydrocodone/Acetaminophen [Beulah 5-325] 1 tab PO Q6HR PRN 3 Days #12 tab 09/19/19 [Rx] Follow up Appointment(s)/Referral(s): Libby Garcia III, MD [Primary Care Provider] - 1-2 days (Please call office to set up appt.) Katy Sheldon MD [STAFF PHYSICIAN] - 10/02/19 8:15 am Charlie Becerril MD [STAFF PHYSICIAN] - 10/01/19 3:10 pm ( ) Activity/Diet/Wound Care/Special Instructions: Needs outpatient EGD and colonoscopy Activity limited until follow-up Follow-up with primary care provider upon discharge Continue current diet and advance as tolerated slowly Continue antibiotics until finished No driving while taking Beulah No lifting over 10 pounds You may shower. No soaking or tub baths Very light activity until you are reevaluated at your follow up appointment with your surgeon Discharge Disposition: HOME SELF-CARE
== END 2019-09-19 14:42 | disposition home or self-care (01) | DRG 853 ==
LOC: EC 14:55 → 6NMEDSUR 18:41
PROVIDERS: ADMIT Hospitalist; ATTEND Hospitalist
PROC: 0FC98ZZ Extirpation of Matter from Common Bile Duct, Via Natural or Artificial Opening Endoscopic (ICD-10-PCS; principal; 2019-09-17 11:55)
PROC: 0FT44ZZ Resection of Gallbladder, Percutaneous Endoscopic Approach (ICD-10-PCS; 2019-09-18)
DX: A41.51 Sepsis due to Escherichia coli [E. coli] (principal); K85.10 Biliary acute pancreatitis without necrosis or infection; K83.09 Other cholangitis; K80.64 Calculus of gallbladder and bile duct with chronic cholecystitis without obstruction; E78.5 Hyperlipidemia, unspecified; I10 Essential (primary) hypertension; L40.9 Psoriasis, unspecified; E11.9 Type 2 diabetes mellitus without complications; K21.9 Gastro-esophageal reflux disease without esophagitis; K59.09 Other constipation; G43.909 Migraine, unspecified, not intractable, without status migrainosus; H26.9 Unspecified cataract; Z88.0 Allergy status to penicillin; Z88.2 Allergy status to sulfonamides; Z79.82 Long term (current) use of aspirin; Z79.84 Long term (current) use of oral hypoglycemic drugs; Z79.899 Other long term (current) drug therapy; Z98.41 Cataract extraction status, right eye; Z97.4 Presence of external hearing-aid; Z87.2 Personal history of diseases of the skin and subcutaneous tissue; Z98.890 Other specified postprocedural states; Z80.8 Family history of malignant neoplasm of other organs or systems
CPT/HCPCS: 36415; 43260; 43262; 43277; 71045; 74022; 74177; 74330; 76705; 80053; 81001; 82150; 82550; 83605; 83690; 85025; 85027; 87040; 87077; 87186; 88304; 93005; 96361; 96374; 96375; 99285

== ENCOUNTER 2019-10-28 07:24 | Day surgery (SDC) | payer MEDICARE ==
[~2019-10-28 07:24] MED LIST: LACTATED RINGERS 1,000 ML IV SCH; LIDOCAINE 1% 20 ML VIAL (10MG/ML) FOR IV START INTRADERMA PRN
[2019-10-28 08:08] LABS: Glucose,Whole Blood 176 mg/dL (75-99)
[2019-10-28 08:09] VITALS: TEMP 97
[2019-10-28] MEDS ORDERED: LIDOCAINE 1% INJ 10MG/ML (20 ML MDV) ONE (08:34)
[2019-10-28] MEDS ORDERED: PROPOFOL 10 MG/ML 20 ML VIAL IV ONE (08:34)
--- NOTE | 2019-10-28 08:45 | P.GSHP ---
History of Present Illness H&P Date: 10/28/19 Chief Complaint: GERD, constipation This a 74-year-old male who presents today for EGD and colonoscopy. Patient has had issues with GERD and chronic constipation. Past Medical History Past Medical History: Diabetes Mellitus, GERD/Reflux, Hyperlipidemia, Hypertension, Skin Disorder Additional Past Medical History / Comment(s): 09/14/19 ADMITTED FOR CHOLELITHIASIS. DYSPHAGIA, PAST HX OF MIGRAINES, PSORIASIS., BACK PAIN, STATES POOR VISION RIGHT EYE., CATARACT LEFT EYE., ZION HEARING AIDS. History of Any Multi-Drug Resistant Organisms: None Reported Past Surgical History: Cholecystectomy, Orthopedic Surgery Additional Past Surgical History / Comment(s): 09/18/19 GB REMOVED. 07/22/15 excision anterior osteophytes C3-C4, C4-C5 with NIM cord monitoring. Other SX: LEFT KNEE I&D FOR INFECTION, PICC LINE-later removed, rt cataract, rt knee surgery Past Anesthesia/Blood Transfusion Reactions: Postoperative Nausea & Vomiting (PONV) Past Psychological History: No Psychological Hx Reported Smoking Status: Never smoker Past Alcohol Use History: None Reported Past Drug Use History: None Reported - Past Family History Brother(s) Family Medical History: Cancer Additional Family Medical History / Comment(s): Twin brother = skin cancer. Medications and Allergies Home Medications Medication Instructions Recorded Confirmed Type Finasteride [Proscar] 5 mg PO HS 03/18/15 10/28/19 History Multivitamins, Thera [Multivitamin 1 tab PO DAILY 06/06/18 10/28/19 History (formulary)] Aspirin EC [Ecotrin Low Dose] 81 mg PO DAILY 09/14/19 10/28/19 History Latanoprost/Pf [Latanoprost 0.005% 1 drop BOTH EYES HS 09/14/19 10/28/19 History Eye Drop] glipiZIDE XL [Glucotrol XL] 5 mg PO BID 09/14/19 10/28/19 History metFORMIN HCL ER [Glucophage Xr] 1,000 mg PO AC-SUPPER 09/14/19 10/28/19 History sitaGLIPtin [Januvia] 100 mg PO QAM 09/14/19 10/28/19 History Atorvastatin [Lipitor] 10 mg PO QAM 10/25/19 10/28/19 History Losartan [Cozaar] 25 mg PO HS 10/25/19 10/28/19 History Pantoprazole Sodium [Protonix] 40 mg PO HS 10/25/19 10/28/19 History Allergies Allergy/AdvReac Type Severity Reaction Status Date / Time Penicillins Allergy Unknown Verified 10/28/19 07:53 Sulfa (Sulfonamide Allergy Swelling, Verified 10/28/19 07:53 Antibiotics) Rash Surgical - Exam Vital Signs Temp Pulse Resp BP Pulse Ox 97 F L 113 H 16 144/81 98 10/28/19 08:08 10/28/19 08:08 10/28/19 08:08 10/28/19 08:08 10/28/19 08:08 - General well developed, no distress - Eyes PERRL - ENT normal pinna - Neck no masses - Respiratory normal expansion - Cardiovascular Rhythm: regular - Abdomen Abdomen: soft, non tender Results - Labs Abnormal Lab Results - Last 24 Hours (Table) 10/28/19 Range/Units 08:01 POC Glucose (mg/dL) 176 H (75-99) mg/dL Assessment and Plan Assessment: GERD, constipation. We'll perform EGD and colonoscopy.
--- NOTE | 2019-10-28 09:10 | P.OP ---
Date of Procedure: 10/28/19 Preoperative Diagnosis: GERD Constipation Postoperative Diagnosis: Antral gastritis Mild esophagitis Mild diverticulosis Procedure(s) Performed: EGD Colonoscopy Anesthesia: MAC Surgeon: Charlie Becerril Pathology: other (Antrum, esophagus) Condition: stable Disposition: PACU Description of Procedure: The patient's placed on the endoscopy table in the lateral position. He received IV sedation. The gastroscope was placed oropharynx passed in the esophagus and stomach. Scope was then placed through the pylorus. The first and second portion of the duodenum appeared normal. Scope was then brought back the antrum this. Mildly inflamed. A biopsies performed. The scope was unretroflexed and remainder of the stomach appeared normal. There was no significant hiatal hernia. The GE junction was at 40 cm. The distal esophagus appeared mildly inflamed. A biopsies performed. The proximal esophagus appeared normal. Scope was withdrawn for patient. Next a gentle rectal exam performed which revealed no abnormalities. Flexible colonoscope was then placed patient anus passed throughout the entire colon. The ileocecal valve was visualized. The cecum, ascending and transverse colon appeared normal. In the descending and; there is mild diverticular changes. Scope was then brought back the rectum and this appeared normal. Scope withdrawn for patient..
[2019-10-28 09:40] VITALS: BP 103/66; PULSE 86; RESP 16
== END 2019-10-28 09:50 | disposition home or self-care (01) ==
LOC: ORWHC2ENDO 07:24
PROVIDERS: ATTEND Surgery
DX: K29.50 Unspecified chronic gastritis without bleeding (principal); K21.0 Gastro-esophageal reflux disease with esophagitis; K57.30 Diverticulosis of large intestine without perforation or abscess without bleeding; K59.09 Other constipation; E11.9 Type 2 diabetes mellitus without complications; E78.5 Hyperlipidemia, unspecified; I10 Essential (primary) hypertension; L40.9 Psoriasis, unspecified; H53.8 Other visual disturbances; H26.9 Unspecified cataract; G43.909 Migraine, unspecified, not intractable, without status migrainosus; H40.9 Unspecified glaucoma; Z87.19 Personal history of other diseases of the digestive system; Z86.69 Personal history of other diseases of the nervous system and sense organs; Z97.4 Presence of external hearing-aid; Z90.49 Acquired absence of other specified parts of digestive tract; Z98.890 Other specified postprocedural states; Z98.41 Cataract extraction status, right eye; Z91.89 Other specified personal risk factors, not elsewhere classified; Z80.8 Family history of malignant neoplasm of other organs or systems; Z79.82 Long term (current) use of aspirin; Z79.899 Other long term (current) drug therapy; Z79.84 Long term (current) use of oral hypoglycemic drugs; Z88.0 Allergy status to penicillin; Z88.2 Allergy status to sulfonamides; Z97.2 Presence of dental prosthetic device (complete) (partial)
CPT/HCPCS: 88305; 45378; 43239; J2001; J2704

== ENCOUNTER → 2020-07-30 | Outpatient (CLI) | payer MEDICARE ==
--- NOTE | 2020-07-30 13:05 | FL ---
EXAMINATION TYPE: FL barium swallow w video DATE OF EXAM: 07/30/2020 CLINICAL HISTORY: 74-year-old male [id number] Dysphagia. Patient with long-standing sensation of food stuc k in the throat. TECHNIQUE: Deglutition study is performed utilizing thin liquid barium, honey and nectar thick liqui d barium, barium thick applesauce, and barium coated cracker. COMPARISON: None. Total fluoroscopy time: 4 minutes 11 seconds. Total images: None. Real-time fluoroscopy support was provided to speech pathology. FINDINGS: The oral and pharyngeal phases show satisfactory initiation and propagation with all modalities teste d. Normal mastication is seen with solid modalities tested. There is no evidence of penetration or aspiration with any modality tested. However, there is inconsistent incomplete epiglottic inversion noted. Mild to moderate intermittent v allecular residuals and mild intermittent piriform sinus residuals are present. There is coating of t he posterior pharyngeal wall suggesting poor pharyngeal peristalsis. Some ossification of anterior lo ngitudinal ligament incidentally noted from C5-C7. This causes minimal impression onto the posterior wall of the cervical esophagus. IMPRESSION: 1. No penetration or aspiration. 2. However, there is inconsistent incomplete epiglottic inversion, diminished pharyngeal peristalsis, and variable [id number] intermittent residuals. Further clinical correlation recommended. Ple ase refer to speech therapist notes for further details if necessary.
== END | disposition home or self-care (01) ==
LOC: RADFLMAIN 10:46
PROVIDERS: ATTEND Otolaryngology
DX: R13.10 Dysphagia, unspecified (principal)
CPT/HCPCS: 74230

== ENCOUNTER 2021-11-17 10:06 | Emergency (ER) | payer MEDICARE ==
[2021-11-17 13:16] LABS: Glucose,Whole Blood 172 mg/dL (75-99)
[2021-11-17] MEDS ORDERED: ACETAMINOPHEN TAB 325 MG TAB PO STA (13:28)
[2021-11-17] MEDS ORDERED: SODIUM CHLORIDE 0.9% 500 ML 500 ML IV ONE (13:46)
--- NOTE | 2021-11-17 13:46 | ED ---
General Adult HPI - General Chief complaint: Shortness of Breath Stated complaint: covid+, wants infusion Time Seen by Provider: 11/17/21 13:35 Source: patient, RN notes reviewed, old records reviewed Mode of arrival: ambulatory Limitations: no limitations - History of Present Illness Initial comments: Well-appearing 76-year-old male presents to the emergency room ambulatory with complaints of cough and confusion and fever after testing positive for c oronavirus on Monday. Patient states that he and his are both sick. He denies any chest pain. He was vaccinated against coronavirus but he did not receive the booster. He did call his primary care doctor who told to come to the emergency room for possible infusion and chest x-ray. -: days(s) (6) Severity scale (1-10): 0 Consistency: constant Associated Symptoms: confusion, cough, fever/chills, malaise - Related Data Home Medications Medication Instructions Recorded Confirmed Finasteride [Proscar] 5 mg PO DAILY 03/18/15 11/17/21 Multivitamins, Thera [Multivitamin 1 tab PO DAILY 06/06/18 11/17/21 (formulary)] Latanoprost/Pf [Latanoprost 0.005% 1 drop BOTH EYES HS 09/14/19 11/17/21 Eye Drop] glipiZIDE XL [Glucotrol XL] 5 mg PO BID 09/14/19 11/17/21 metFORMIN HCL ER [Glucophage XR] 1,000 mg PO AC-SUPPER 09/14/19 11/17/21 sitaGLIPtin [Januvia] 100 mg PO DAILY 09/14/19 11/17/21 Atorvastatin [Lipitor] 10 mg PO DAILY 10/25/19 11/17/21 Losartan [Cozaar] 25 mg PO DAILY 10/25/19 11/17/21 Cholecalciferol [Vitamin D3 (25 50 mcg PO DAILY 11/17/21 11/17/21 Mcg = 1000 Iu)] Omeprazole 20 mg PO DAILY 11/17/21 11/17/21 Timolol [Betimol 0.5% Ophth Soln] 1 drop RIGHT EYE BID 11/17/21 11/17/21 Zinc 50 mg PO BID 11/17/21 11/17/21 Allergies Allergy/AdvReac Type Severity Reaction Status Date / Time Penicillins Allergy Unknown Verified 11/17/21 11:12 Sulfa (Sulfonamide Allergy Swelling, Verified 11/17/21 11:12 Antibiotics) Rash Review of Systems ROS Statement: Those systems with pertinent positive or pertinent negative responses have been documented in the HPI. ROS Other: All systems not noted in ROS Statement are negative. Past Medical History Past Medical History: Diabetes Mellitus, GERD/Reflux, Hyperlipidemia, Hypertension, Skin Disorder Additional Past Medical History / Comment(s): 09/14/19 ADMITTED FOR CHOLELITHIASIS. DYSPHAGIA, PAST HX OF MIGRAINES, PSORIASIS., BACK PAIN, STATES POOR VISION RIGHT EYE., CATARACT LEFT EYE., ZION HEARING AIDS. History of Any Multi-Drug Resistant Organisms: None Reported Past Surgical History: Cholecystectomy, Orthopedic Surgery Additional Past Surgical History / Comment(s): 09/18/19 GB REMOVED. 07/22/15 excision anterior osteophytes C3-C4, C4-C5 with NIM cord monitoring. Other SX: LEFT KNEE I&D FOR INFECTION, PICC LINE-later removed, rt cataract, rt knee surgery Past Anesthesia/Blood Transfusion Reactions: Postoperative Nausea & Vomiting (PONV) Past Psychological History: No Psychological Hx Reported Smoking Status: Never smoker Past Alcohol Use History: None Reported Past Drug Use History: None Reported - Past Family History Brother(s) Family Medical History: Cancer Additional Family Medical History / Comment(s): Twin brother = skin cancer. General Exam Limitations: no limitations General appearance: alert, in no apparent distress ENT exam: Present: normal oropharynx, mucous membranes moist Neck exam: Present: normal inspection, full ROM. Absent: tenderness, meningismus, lymphadenopathy, thyromegaly Respiratory exam: Present: rales (left base). Absent: respiratory distress, rhonchi, stridor, chest wall tenderness, accessory muscle use Cardiovascular Exam: Present: tachycardia Extremities exam: Absent: pedal edema Back exam: Present: normal inspection, full ROM. Absent: tenderness, CVA tenderness (R), CVA tenderness (L), paraspinal tenderness, vertebral tenderness, rash noted Neurological exam: Present: alert, oriented X3, normal gait Psychiatric exam: Present: normal affect, normal mood Skin exam: Present: warm, dry, intact, normal color. Absent: cyanosis, diaphoretic, petechiae, pallor Course Vital Signs 11/17/21 11/17/21 11/17/21 11:02 15:29 16:30 Temperature 101.6 F H Pulse Rate 113 H 85 Respiratory 18 22 20 Rate Blood Pressure 108/68 116/68 O2 Sat by Pulse 98 93 L Oximetry EKG Findings - EKG Results: EKG: sinus rhythm (Ventricular rate of 94, WI interval 0.148, QRS 0.92, QTC 0.386) Medical Decision Making - Medical Decision Making Well-appearing 76-year-old male presents to the emergency room with cough fever and shortness of breath that started on Monday. He did test positive for coronavirus. He did receive coronavirus vaccine but has not received a booster. His primary care doctor told him to come to the emergency room for monoclonal antibodies infusion. Chest x-ray shows no acute cardiopulmonary process. His LDH is 623, CRP is 5.0, troponin is negative at 0.012 EKG shows sinus rhythm. D-dimer is 1.08, patient CT angiogram shows no acute PE. There is mild diffuse patchy ground glass opacities compatible with Covid pneumonia. There is an incidental thyroid nodule patient will be notified to follow up with his primary care doctor for follow-up. Patient received monoclonal antibodies infusion. He'll be discharged home and directed to continue taking vitamin C, vitamin D and zinc in addition to Tylenol and Motrin as needed for fevers or body aches. Increase his fluid intake. Return to the emergency room with any new or worsening symptoms. Self quara ntine for 10 days from symptom onset. Patient is agreeable to this plan of care Attending is Dr. Isaac - Lab Data Result diagrams: 11/17/21 14:03 11/17/21 14:03 Lab Results 11/17/21 11/17/21 11/17/21 Range/Units 13:13 14:03 14:03 WBC 4.0 (3.8-10.6) k/uL RBC 4.65 (4.30-5.90) m/uL Hgb 15.2 (13.0-17.5) gm/dL Hct 44.1 (39.0-53.0) % MCV 94.9 (80.0-100.0) fL MCH 32.6 (25.0-35.0) pg MCHC 34.4 (31.0-37.0) g/dL RDW 12.5 (11.5-15.5) % Plt Count 111 L (150-450) k/uL MPV 8.4 Neutrophils % 78 % Lymphocytes % 14 % Monocytes % 6 % Eosinophils % 0 % Basophils % 0 % Neutrophils # 3.1 (1.3-7.7) k/uL Lymphocytes # 0.6 L (1.0-4.8) k/uL Monocytes # 0.2 (0-1.0) k/uL Eosinophils # 0.0 (0-0.7) k/uL Basophils # 0.0 (0-0.2) k/uL PT 10.2 (9.0-12.0) sec INR 0.9 (<1.2) APTT 27.0 (22.0-30.0) sec D-Dimer 1.08 H (<0.60) mg/L FEU Sodium (137-145) mmol/L Potassium (3.5-5.1) mmol/L Chloride (98-107) mmol/L Carbon Dioxide (22-30) mmol/L Anion Gap mmol/L BUN (9-20) mg/dL Creatinine (0.66-1.25) mg/dL Est GFR (CKD-EPI)AfAm (>60 ml/min/1.73 sqM) Est GFR (CKD-EPI)NonAf (>60 ml/min/1.73 sqM) Glucose (74-99) mg/dL POC Glucose (mg/dL) 172 H (75-99) mg/dL POC Glu [employer] Coordinator ID Maryellen Ramos Plasma Lactic Acid Diego (0.7-2.0) mmol/L Calcium (8.4-10.2) mg/dL Magnesium (1.6-2.3) mg/dL Total Bilirubin (0.2-1.3) mg/dL AST (17-59) U/L ALT (4-49) U/L Alkaline Phosphatase (38-126) U/L Lactate Dehydrogenase (313-618) U/L Troponin I (0.000-0.034) ng/mL C-Reactive Protein (<1.0) mg/dL Total Protein (6.3-8.2) g/dL Albumin (3.5-5.0) g/dL Coronavirus (PCR) (Not Detectd) 11/17/21 11/17/21 11/17/21 Range/Units 14:03 14:03 14:03 WBC (3.8-10.6) k/uL RBC (4.30-5.90) m/uL Hgb (13.0-17.5) gm/dL Hct (39.0-53.0) % MCV (80.0-100.0) fL MCH (25.0-35.0) pg MCHC (31.0-37.0) g/dL RDW (11.5-15.5) % Plt Count (150-450) k/uL MPV Neutrophils % % Lymphocytes % % Monocytes % % Eosinophils % % Basophils % % Neutrophils # (1.3-7.7) k/uL Lymphocytes # (1.0-4.8) k/uL Monocytes # (0-1.0) k/uL Eosinophils # (0-0.7) k/uL Basophils # (0-0.2) k/uL PT (9.0-12.0) sec INR (<1.2) APTT (22.0-30.0) sec D-Dimer (<0.60) mg/L FEU Sodium 133 L (137-145) mmol/L Potassium 4.3 (3.5-5.1) mmol/L Chloride 96 L (98-107) mmol/L Carbon Dioxide 27 (22-30) mmol/L Anion Gap 10 mmol/L BUN 14 (9-20) mg/dL Creatinine 1.15 (0.66-1.25) mg/dL Est GFR (CKD-EPI)AfAm 72 (>60 ml/min/1.73 sqM) Est GFR (CKD-EPI)NonAf 62 (>60 ml/min/1.73 sqM) Glucose 171 H (74-99) mg/dL POC Glucose (mg/dL) (75-99) mg/dL POC Glu [employer] Coordinator ID Plasma Lactic Acid Diego 1.4 (0.7-2.0) mmol/L Calcium 8.7 (8.4-10.2) mg/dL Magnesium 2.3 (1.6-2.3) mg/dL Total Bilirubin 0.8 (0.2-1.3) mg/dL AST 54 (17-59) U/L ALT 45 (4-49) U/L Alkaline Phosphatase 91 (38-126) U/L Lactate Dehydrogenase 623 H (313-618) U/L Troponin I (0.000-0.034) ng/mL C-Reactive Protein 5.0 H (<1.0) mg/dL Total Protein 7.6 (6.3-8.2) g/dL Albumin 4.2 (3.5-5.0) g/dL Coronavirus (PCR) Detected A (Not Detectd) 11/17/21 Range/Units 14:03 WBC (3.8-10.6) k/uL RBC (4.30-5.90) m/uL Hgb (13.0-17.5) gm/dL Hct (39.0-53.0) % MCV (80.0-100.0) fL MCH (25.0-35.0) pg MCHC (31.0-37.0) g/dL RDW (11.5-15.5) % Plt Count (150-450) k/uL MPV Neutrophils % % Lymphocytes % % Monocytes % % Eosinophils % % Basophils % % Neutrophils # (1.3-7.7) k/uL Lymphocytes # (1.0-4.8) k/uL Monocytes # (0-1.0) k/uL Eosinophils # (0-0.7) k/uL Basophils # (0-0.2) k/uL PT (9.0-12.0) sec INR (<1.2) APTT (22.0-30.0) sec D-Dimer (<0.60) mg/L FEU Sodium (137-145) mmol/L Potassium (3.5-5.1) mmol/L Chloride (98-107) mmol/L Carbon Dioxide (22-30) mmol/L Anion Gap mmol/L BUN (9-20) mg/dL Creatinine (0.66-1.25) mg/dL Est GFR (CKD-EPI)AfAm (>60 ml/min/1.73 sqM) Est GFR (CKD-EPI)NonAf (>60 ml/min/1.73 sqM) Glucose (74-99) mg/dL POC Glucose (mg/dL) (75-99) mg/dL POC Glu [employer] Coordinator ID Plasma Lactic Acid Diego (0.7-2.0) mmol/L Calcium (8.4-10.2) mg/dL Magnesium (1.6-2.3) mg/dL Total Bilirubin (0.2-1.3) mg/dL AST (17-59) U/L ALT (4-49) U/L Alkaline Phosphatase (38-126) U/L Lactate Dehydrogenase (313-618) U/L Troponin I <0.012 (0.000-0.034) ng/mL C-Reactive Protein (<1.0) mg/dL Total Protein (6.3-8.2) g/dL Albumin (3.5-5.0) g/dL Coronavirus (PCR) (Not Detectd) Disposition Clinical Impression: COVID-19 Disposition: HOME SELF-CARE Condition: Good Instructions (If sedation given, give patient instructions): Coronavirus Disease 2019 (COVID-19) Additional Instructions: Continue taking vitamin C, vitamin D and zinc in addition to Tylenol and Motrin as needed for fevers or body aches. Increase your fluid intake. Self quarantine for 10 days from symptom onset. Return to the emergency room with any new or worsening symptoms. Is patient prescribed a controlled substance at d/c from ED?: No Referrals: Libby Garcia III, MD [Primary Care Provider] - 1-2 days
[2021-11-17 14:38] LABS: Basophils % (A) 0 %; Eosinophils % (A) 0 %; HCT 44.1 % (39.0-53.0); HGB 15.2 gm/dL (13.0-17.5); Lymphocytes # (A) 0.6 k/uL (1.0-4.8); Lymphocytes % (A) 14 %; MCH 32.6 pg (25.0-35.0); MCHC 34.4 g/dL (31.0-37.0); MCV 94.9 fL (80.0-100.0); Mean Platelet Volume 8.4; Monocytes # (A) 0.2 k/uL (0-1.0); Monocytes % (A) 6 %; Neutrophils # (A) 3.1 k/uL (1.3-7.7); Neutrophils % (A) 78 %; Platelet Count 111 k/uL (150-450); RBC 4.65 m/uL (4.30-5.90); RDW 12.5 % (11.5-15.5)
[2021-11-17 14:49] LABS: Albumin 4.2 g/dL (3.5-5.0); Calcium 8.7 mg/dL (8.4-10.2); Magnesium 2.3 mg/dL (1.6-2.3); Potassium 4.3 mmol/L (3.5-5.1); Total Bilirubin 0.8 mg/dL (0.2-1.3); Total Protein 7.6 g/dL (6.3-8.2)
--- NOTE | 2021-11-17 15:11 | XR ---
EXAMINATION TYPE: XR chest 1V portable DATE OF EXAM: 11/17/2021 COMPARISON: 09/17/2019 INDICATION: Cough TECHNIQUE: Single frontal view of the chest is obtained. FINDINGS: The heart size is normal. The pulmonary vasculature is normal. The lungs are clear. IMPRESSION: 1. No acute pulmonary process.
[2021-11-17 15:15] LABS: INR 0.9 (<1.2); Prothrombin Time 10.2 sec (9.0-12.0)
[2021-11-17] MEDS ORDERED: SOTROVIMAB (EUA) 500 MG in SODIUM CHLORIDE 0.9% 100 ML IVPB ONE (15:30)
[2021-11-17] MEDS ORDERED: SODIUM CHLORIDE 0.9% 50 ML IVPB ONE (16:00)
[2021-11-17 16:43] VITALS: RESP 20
--- NOTE | 2021-11-17 16:49 | CT ---
EXAMINATION TYPE: CT angio chest DATE OF EXAM: 11/17/2021 4:25 PM COMPARISON: Same-day radiograph HISTORY: elevated d-dimer, +covid CT DLP: 398.4 mGycm Automated exposure control for dose reduction was used. CONTRAST: CTA scan of the thorax is performed with IV Contrast, patient injected with 100 mL of Isovue 370, pul monary embolism protocol. MIP images are created and reviewed. FINDINGS: LUNGS: There are bilateral diffuse mild patchy ground glass opacities, predominantly in the lower lob es. There is no pleural effusion or pneumothorax seen. The tracheobronchial tree is patent. MEDIASTINUM: There is satisfactory enhancement of the pulmonary artery and its branches, there is no CT evidence for pulmonary embolism. There are no greater than 1 cm hilar or mediastinal lymph nodes. No pericardial effusion is seen. OTHER: Partially imaged multiple simple appearing left renal cysts measuring up to 3.8 cm seen. Hepa tic steatosis and incidental 11 mm right thyroid nodule noted. No additional significant abnormality is seen. IMPRESSION: NO ACUTE PE. DIFFUSE MILD PATCHY GROUND GLASS OPACITIES, COMPATIBLE WITH TYPICAL PNEUMONIA INCLUDING COVID IN THE APPROPRIATE CLINICAL SETTING. INCIDENTAL THYROID NODULE. CONSIDER NONEMERGENT OUTPATIENT ULTRASOUND FOR FURTHER EVALUATION.
[2021-11-17 18:13] VITALS: BP 120/70; PULSE 86; TEMP 98.6
== END 2021-11-17 18:11 | disposition home or self-care (01) ==
LOC: EC 10:06
DX: U07.1 COVID-19 (principal); E11.9 Type 2 diabetes mellitus without complications; I10 Essential (primary) hypertension; K21.9 Gastro-esophageal reflux disease without esophagitis; Z79.83 Long term (current) use of bisphosphonates; Z20.822 Contact with and (suspected) exposure to COVID-19; Z88.0 Allergy status to penicillin; Z88.2 Allergy status to sulfonamides
CPT/HCPCS: 36415; 93005; 85379; 80053; 82728; 83605; 83615; 83735; 84484; 85025; 85610; 85730; 86140; 87040; 84145; 87635; 71045; 71275; 99285; 96360; Q9967; Q0247

== ENCOUNTER 2021-11-24 13:43 | Emergency (ER) | payer MEDICARE ==
[2021-11-24 14:29] VITALS: RESP 16
--- NOTE | 2021-11-24 15:35 | ED ---
SOB HPI - General Chief Complaint: Shortness of Breath Stated Complaint: fever, SOB Time Seen by Provider: 11/24/21 14:28 Source: patient, RN notes reviewed Mode of arrival: ambulatory Limitations: no limitations - History of Present Illness Initial Comments: This is a 76 year old male who presents to the emergency department with shortness of breath. He was diagnosed with COVID on 11/17/2021 and since then has had shortness of breath, intermittent fevers/chills, and coughing. He is fully vaccinated and received monoclonal antibody treatment on 11/17. States that he had 5 family members from COVID. He is diabetic and his blood sugars have been elevated in the mid to high 200s. His pulse ox averaged around 97% before COVID and recently has been 94-96% depending on the day. Yesterday he had a temperature of 101 degrees F. He also occasionally wakes up with his bed sheets soaking wet. He has been taking OTC Mucinex for his cough with some re lief. Overall he does not feel like his symptoms have worsened, however they are not improving. MD Complaint: shortness of breath, cough Known History Of: diabetes - Related Data Home Medications Medication Instructions Recorded Confirmed Finasteride [Proscar] 5 mg PO DAILY 03/18/15 11/17/21 Multivitamins, Thera [Multivitamin 1 tab PO DAILY 06/06/18 11/17/21 (formulary)] Latanoprost/Pf [Latanoprost 0.005% 1 drop BOTH EYES HS 09/14/19 11/17/21 Eye Drop] glipiZIDE XL [Glucotrol XL] 5 mg PO BID 09/14/19 11/17/21 metFORMIN HCL ER [Glucophage XR] 1,000 mg PO AC-SUPPER 09/14/19 11/17/21 sitaGLIPtin [Januvia] 100 mg PO DAILY 09/14/19 11/17/21 Atorvastatin [Lipitor] 10 mg PO DAILY 10/25/19 11/17/21 Losartan [Cozaar] 25 mg PO DAILY 10/25/19 11/17/21 Cholecalciferol [Vitamin D3 (25 50 mcg PO DAILY 11/17/21 11/17/21 Mcg = 1000 Iu)] Omeprazole 20 mg PO DAILY 11/17/21 11/17/21 Timolol [Betimol 0.5% Ophth Soln] 1 drop RIGHT EYE BID 11/17/21 11/17/21 Zinc 50 mg PO BID 11/17/21 11/17/21 Previous Rx's Medication Instructions Recorded Albuterol Nebulized [Ventolin 2.5 mg INHALATION Q4H PRN #75 ml 11/24/21 Nebulized] Benzonatate [Tessalon Perles] 100 mg PO TID PRN #30 capsule 11/24/21 methylPREDNISolone Dose Pack 4 mg PO DIRECTED #1 packet 11/24/21 [Medrol Dose Pack] Allergies Allergy/AdvReac Type Severity Reaction Status Date / Time Penicillins Allergy Unknown Verified 11/24/21 14:18 Sulfa (Sulfonamide Allergy Swelling, Verified 11/24/21 14:18 Antibiotics) Rash Review of Systems ROS Statement: Those systems with pertinent positive or pertinent negative responses have been documented in the HPI. ROS Other: All systems not noted in ROS Statement are negative. Constitutional: Reports: fever, chills, night sweats ENT: Denies: ear pain, throat pain Respiratory: Reports: cough, dyspnea. Denies: wheezes, hemoptysis Cardiovascular: Denies: chest pain, palpitations, dyspnea on exertion Gastrointestinal: Denies: abdominal pain, nausea, vomiting, diarrhea Genitourinary: Denies: urgency, dysuria, frequency Musculoskeletal: Denies: back pain Skin: Denies: rash, lesions Neurological: Denies: headache, weakness Past Medical History Past Medical History: Diabetes Mellitus, GERD/Reflux, Hyperlipidemia, Hypertension, Skin Disorder Additional Past Medical History / Comment(s): 09/14/19 ADMITTED FOR CHOLELITHIASIS. DYSPHAGIA, PAST HX OF MIGRAINES, PSORIASIS., BACK PAIN, STATES POOR VISION RIGHT EYE., CATARACT LEFT EYE., ZION HEARING AIDS. History of Any Multi-Drug Resistant Organisms: None Reported Past Surgical History: Cholecystectomy, Orthopedic Surgery Additional Past Surgical History / Comment(s): 09/18/19 GB REMOVED. 07/22/15 excision anterior osteophytes C3-C4, C4-C5 with NIM cord monitoring. Other SX: LEFT KNEE I&D FOR INFECTION, PICC LINE-later removed, rt cataract, rt knee surgery Past Anesthesia/Blood Transfusion Reactions: Postoperative Nausea & Vomiting (PONV) Past Psychological History: No Psychological Hx Reported Smoking Status: Never smoker Past Alcohol Use History: None Reported Past Drug Use History: None Reported - Past Family History Brother(s) Family Medical History: Cancer Additional Family Medical History / Comment(s): Twin brother = skin cancer. General Exam Limitations: no limitations General appearance: alert, in no apparent distress Head exam: Present: atraumatic, normocephalic, normal inspection Respiratory exam: Present: other (Decreased breath sounds in all lung james and crackles in the right lower lung base. ). Absent: stridor, chest wall tenderness, accessory muscle use Cardiovascular Exam: Present: regular rate, normal rhythm, normal heart sounds. Absent: systolic murmur, diastolic murmur, rubs, gallop, clicks Neurological exam: Present: alert, oriented X3, CN II-XII intact Psychiatric exam: Present: normal affect, normal mood Skin exam: Present: warm, dry, intact, normal color. Absent: rash Course Vital Signs 11/24/21 11/24/21 11/24/21 14:11 14:26 17:11 Temperature 98.6 F 98.0 F 98.6 F Pulse Rate 91 83 80 Respiratory 18 16 16 Rate Blood Pressure 119/75 135/82 108/69 O2 Sat by Pulse 93 L 91 L 93 L Oximetry Medical Decision Making - Medical Decision Making This is a 76 year old male who presents to the emergency room with progressive COVID symptoms. Chest XR obtained revealing a developing COVID pneumonia. Patient was placed on continuous pulse ox due to the measured value of 93% in triage. Pulse ox dropped down to 89-92% with his mask on and lying down. When he sat up, took his mask off and took a deep breath, his pulse ox hovered around 94-95%. Patient appears well and will plan to discharge home. Rx for medrol dose karolyn provided, advised that this will cause his blood sugars to elevate temporarily. Rx for albuterol inhaler and tessalon perles provided as well. Discussed with the patient that he should monitor his pulse ox at home and if it is at or consistently below 92%, he should return to the emergency department. He should also return to the emergency department if his shortness of breath or other symptoms worsen. Return precautions reviewed in depth, the patient is instructed to return to the emergency department if symptoms worsen or do not improve. Patient verbalized understanding. This case was discussed in detail with the attending ED physician. Presentation, findings, and treatment plan discussed in detail as well. - Lab Data Result diagrams: 11/24/21 15:26 11/24/21 15:26 Lab Results 11/24/21 11/24/21 11/24/21 Range/Units 15:26 15:26 15:26 WBC 7.5 (3.8-10.6) k/uL RBC 4.05 L (4.30-5.90) m/uL Hgb 13.1 (13.0-17.5) gm/dL Hct 38.1 L (39.0-53.0) % MCV 93.9 (80.0-100.0) fL MCH 32.3 (25.0-35.0) pg MCHC 34.3 (31.0-37.0) g/dL RDW 12.3 (11.5-15.5) % Plt Count 269 D (150-450) k/uL MPV 7.9 Neutrophils % 82 % Lymphocytes % 7 % Monocytes % 6 % Eosinophils % 2 % Basophils % 0 % Neutrophils # 6.2 (1.3-7.7) k/uL Lymphocytes # 0.6 L (1.0-4.8) k/uL Monocytes # 0.4 (0-1.0) k/uL Eosinophils # 0.2 (0-0.7) k/uL Basophils # 0.0 (0-0.2) k/uL Sodium 135 L (137-145) mmol/L Potassium 4.4 (3.5-5.1) mmol/L Chloride 101 (98-107) mmol/L Carbon Dioxide 25 (22-30) mmol/L Anion Gap 9 mmol/L BUN 21 H (9-20) mg/dL Creatinine 0.92 (0.66-1.25) mg/dL Est GFR (CKD-EPI)AfAm >90 (>60 ml/min/1.73 sqM) Est GFR (CKD-EPI)NonAf 81 (>60 ml/min/1.73 sqM) Glucose 144 H (74-99) mg/dL Plasma Lactic Acid Diego 1.3 (0.7-2.0) mmol/L Calcium 8.2 L (8.4-10.2) mg/dL Total Bilirubin 1.2 (0.2-1.3) mg/dL AST 47 (17-59) U/L ALT 39 (4-49) U/L Alkaline Phosphatase 94 (38-126) U/L Total Protein 6.4 (6.3-8.2) g/dL Albumin 3.2 L (3.5-5.0) g/dL Disposition Clinical Impression: Pneumonia due to COVID-19 virus Disposition: HOME SELF-CARE Instructions (If sedation given, give patient instructions): Coronavirus Disease 2019 (COVID-19), Viral Pneumonia (ED), COVID-19 (Coronavirus Disease 2019) (ED), COVID-19 and Chronic Health Conditions (ED), Safely Care for Someone Who Has COVID-19 (ED), How to Recover from COVID-19 at Home (ED) Additional Instructions: Return to the emergency department with any worsening symptoms or if the shortness of breath worsens or your oxygen saturation stays consistently at or below 92%. Continue with Tylenol and Motrin for fevers. Prescriptions: methylPREDNISolone Dose Pack [Medrol Dose Pack] 4 mg PO DIRECTED #1 packet Benzonatate [Tessalon Perles] 100 mg PO TID PRN #30 capsule PRN Reason: Cough Albuterol Nebulized [Ventolin Nebulized] 2.5 mg INHALATION Q4H PRN #75 ml PRN Reason: difficulty in breathing Is patient prescribed a controlled substance at d/c from ED?: No Referrals: Libby Garcia III, MD [Primary Care Provider] - 1-2 days
[2021-11-24 15:37] LABS: Basophils % (A) 0 %; Eosinophils # (A) 0.2 k/uL (0-0.7); Eosinophils % (A) 2 %; HCT 38.1 % (39.0-53.0); HGB 13.1 gm/dL (13.0-17.5); Lymphocytes # (A) 0.6 k/uL (1.0-4.8); Lymphocytes % (A) 7 %; MCH 32.3 pg (25.0-35.0); MCHC 34.3 g/dL (31.0-37.0); MCV 93.9 fL (80.0-100.0); Mean Platelet Volume 7.9; Monocytes # (A) 0.4 k/uL (0-1.0); Monocytes % (A) 6 %; Neutrophils # (A) 6.2 k/uL (1.3-7.7); Neutrophils % (A) 82 %; RBC 4.05 m/uL (4.30-5.90); RDW 12.3 % (11.5-15.5); WBC 7.5 k/uL (3.8-10.6)
--- NOTE | 2021-11-24 15:40 | XR ---
EXAMINATION TYPE: XR chest 2V DATE OF EXAM: 11/24/2021 COMPARISON: 11/17/2021 HISTORY: Shortness of breath TECHNIQUE: Frontal and lateral views of the chest are obtained. FINDINGS: Scattered senescent parenchymal changes noted. Hyperinflation compatible with COPD. There are progressive perihilar and upper lobe infiltrates compatible with Covid 19 pneumonia. Heart size is stable. Mediastinal structures are stable and grossly unremarkable. No evidence for hilar prominence. Degenerative changes dorsal spine. IMPRESSION: 1. There are progressive perihilar and upper lobe infiltrates compatible with Covid 19 pneumonia.
[2021-11-24 15:50] LABS: ALT 39 U/L (4-49); AST 47 U/L (17-59); African American GFR (CKD) >90 (>60 ml/min/1.73 sqM); Albumin 3.2 g/dL (3.5-5.0); Alkaline Phosphatase 94 U/L (38-126); Anion Gap 9 mmol/L; Blood Urea Nitrogen 21 mg/dL (9-20); Calcium 8.2 mg/dL (8.4-10.2); Carbon Dioxide 25 mmol/L (22-30); Chloride 101 mmol/L (98-107); Glucose 144 mg/dL (74-99); Non-African American GFR(CKD) 81 (>60 ml/min/1.73 sqM); Potassium 4.4 mmol/L (3.5-5.1); Sodium 135 mmol/L (137-145); Total Bilirubin 1.2 mg/dL (0.2-1.3); Total Protein 6.4 g/dL (6.3-8.2)
[2021-11-24 16:30] LABS: Platelet Count 269 k/uL (150-450)
[2021-11-24 17:14] VITALS: BP 108/69; PULSE 80; TEMP 98.6
== END 2021-11-24 17:46 | disposition home or self-care (01) ==
LOC: EC 13:43
DX: U07.1 COVID-19 (principal); J12.82 Pneumonia due to coronavirus disease 2019; I10 Essential (primary) hypertension; K21.9 Gastro-esophageal reflux disease without esophagitis; E11.9 Type 2 diabetes mellitus without complications; Z79.83 Long term (current) use of bisphosphonates; Z88.2 Allergy status to sulfonamides; Z88.0 Allergy status to penicillin
CPT/HCPCS: 36415; 71046; 80053; 83605; 85025; 99285

== ENCOUNTER → 2022-01-18 | Outpatient (CLI) | payer MEDICARE ==
--- NOTE | 2022-01-18 11:40 | XR ---
EXAMINATION TYPE: XR chest 2V DATE OF EXAM: 01/18/2022 COMPARISON: Chest x-ray November 24, 2021 and older studies. HISTORY: Shortness of breath since recent COVID in October. TECHNIQUE: Frontal and lateral views of the chest are obtained. FINDINGS: Improved bilateral increased opacities with residual mild to moderate scarring in the natalie phery of the upper to midlungs. The cardiac silhouette size remains within normal limits. The osse ous structures are intact. IMPRESSION: Mild to moderate residual bilateral peripheral fibrotic change. No acute pulmonary proce ss currently.
== END | disposition home or self-care (01) ==
LOC: RADXRMAIN 10:57
PROVIDERS: ATTEND Family Medicine
DX: R06.02 Shortness of breath (principal)
CPT/HCPCS: 71046

== ENCOUNTER → 2022-07-04 | Outpatient (CLI) | payer MEDICARE ==
--- NOTE | 2022-07-04 13:17 | XR ---
EXAMINATION TYPE: XR chest 2V DATE OF EXAM: 07/04/2022 COMPARISON: 07/04/2022 INDICATION: Right lower rib pain TECHNIQUE: Frontal and lateral views of the chest are obtained. FINDINGS: The heart size is normal. The pulmonary vasculature is normal. The lungs are clear. No acute osseous abnormalities evident. No pneumothorax is evident. IMPRESSION: 1. No acute pulmonary process.
--- NOTE | 2022-07-04 13:18 | XR ---
EXAMINATION TYPE: XR ribs RT DATE OF EXAM: 07/04/2022 COMPARISON: Chest x-ray 07/04/2022 HISTORY: Lower right rib pain TECHNIQUE: 2 view right RIBS FINDINGS: No acute displaced fractures are evident. No pneumothorax is evident. Follow up exams can b e performed as clinically indicated. IMPRESSION: 1. No acute right rib fractures identified. Follow-up can be performed as clinically indicated.
== END | disposition home or self-care (01) ==
LOC: RADXRMAIN 12:49
PROVIDERS: ATTEND Family Medicine
DX: R07.89 Other chest pain (principal); R06.02 Shortness of breath
CPT/HCPCS: 71046

== ENCOUNTER → 2023-07-06 | Outpatient (CLI) | payer MEDICARE ==
--- NOTE | 2023-07-06 11:15 | US ---
EXAMINATION TYPE: US arterial LE single level DATE OF EXAM: 07/06/2023 9:25 AM CLINICAL INDICATION: Male, 77 years old with history of I73.9 PERIPHERAL VASCULAR DISEASE, UNSPECIFIE D; PVD History of: Smoker: No Hypertension: No Diabetic: Yes Hyperlipidemia: No TIA/CVA: No Previous Vascular Surgery: No CAD: No WI: No Vascular Ulcers: No Claudication: No Gangrene: No Doppler Waveforms: Right: Multiphasic Left: Multiphasic Ankle-Brachial Indices: Right: 1.22 Left: 1.22 Toe Brachial Indices: Right: 0.77 Left: .082 IMPRESSION: Normal bilateral KEYONNA.
[2023-07-07 05:21] LABS: Microalbumin Creatinine Ratio <11 mg/g Cr (0-30)
== END | disposition home or self-care (01) ==
LOC: RADUSWWP 08:50
PROVIDERS: ATTEND Internal Medicine
DX: I73.9 Peripheral vascular disease, unspecified (principal); E11.9 Type 2 diabetes mellitus without complications
CPT/HCPCS: 82043; 82570; 93922

== ENCOUNTER 2025-02-25 06:53 | Day surgery (SDC) | payer MEDICARE ==
[2025-02-21 13:36] VITALS: BMI 20.7
[~2025-02-25 06:53] MED LIST changes: -LACTATED RINGERS 1,000 ML IV SCH; +LIDOCAINE 1% (10MG/ML) FOR IV START INTRADERMA PRN; -LIDOCAINE 1% 20 ML VIAL (10MG/ML) FOR IV START INTRADERMA PRN
[2025-02-25 07:19] VITALS: TEMP 96.1
[2025-02-25 07:27] LABS: Glucose,Whole Blood 126 mg/dL (70-110)
[2025-02-25] MEDS: LACTATED RINGERS 1,000 ML IV SCH (07:28)
[2025-02-25] MEDS: IV FLUID CONTINUATION 1,000 ML IV ONE (07:29)
[2025-02-25] MEDS ORDERED: PROPOFOL 10 MG/ML 20 ML VIAL IV ONE (08:07)
--- NOTE | 2025-02-25 08:14 | P.GSHP ---
History of Present Illness H&P Date: 02/25/25 Chief Complaint: Colon cancer screening 79-year-old male here for colonoscopy. Last colonoscopy 5 years ago. Patient states he had colon polyps at the time. No bowel complaints. No family history of colon cancer. Past Medical History Past Medical History: Diabetes Mellitus, Eye Disorder, GERD/Reflux, Hearing Disorder / Deafness, Hyperlipidemia, Hypertension, Osteoarthritis (OA), Skin Disorder Additional Past Medical History / Comment(s): PATIENT STATES LOW BP, DYSPHAGIA - "weakness in esophagus at top", PAST HX OF MIGRAINES, PSORIASIS, BACK PAIN, STATES POOR VISION RIGHT EYE, BILATERAL GLAUCOMA, BILATERAL HEARING AIDS. History of Any Multi-Drug Resistant Organisms: None Reported Past Surgical History: Cholecystectomy, Orthopedic Surgery Additional Past Surgical History / Comment(s): Excision anterior osteophytes C3- C4, C4-C5 with NIM cord monitoring, LEFT KNEE I&D FOR INFECTION, PICC Line placed and later removed, bilateral cataracts removed, right knee surgery. Past Anesthesia/Blood Transfusion Reactions: Postoperative Nausea & Vomiting (PONV) Additional Past Anesthesia/Blood Transfusion Reaction / Comment(s): PONV X1 only. Smoking Status: Never smoker - Past Family History Brother(s) Family Medical History: Cancer Additional Family Medical History / Comment(s): Twin brother = skin cancer. Medications and Allergies Home Medications Medication Instructions Recorded Confirmed Type Finasteride [Proscar] 5 mg PO DAILY 03/18/15 02/21/25 History Latanoprost/Pf [Latanoprost 0.005% 1 drop BOTH EYES DAILY 09/14/19 02/21/25 History Eye Drop] metFORMIN HCL ER [Glucophage XR] 1,000 mg PO HS 09/14/19 02/21/25 History Cholecalciferol [Vitamin D3 (25 50 mcg PO DAILY 11/17/21 02/21/25 History Mcg = 1000 Iu)] Omeprazole 20 mg PO DAILY 11/17/21 02/21/25 History Timolol [Betimol 0.5% Ophth Soln] 1 drop BOTH EYES BID 11/17/21 02/21/25 History Aspirin [Adult Low Dose Aspirin EC] 81 mg PO DAILY 02/21/25 02/21/25 History Atorvastatin [Lipitor] 20 mg PO DAILY 02/21/25 02/21/25 History Empagliflozin [Jardiance] 25 mg PO DAILY 02/21/25 02/21/25 History Ezetimibe [Zetia] 10 mg PO DAILY 02/21/25 02/21/25 History lisinopriL [Zestril] 2.5 mg PO DAILY 02/21/25 02/21/25 History metFORMIN HCL 500 mg PO QAM 02/21/25 02/21/25 History Allergies Allergy/AdvReac Type Severity Reaction Status Date / Time Sulfa (Sulfonamide Allergy Legs Verified 02/25/25 07:11 Antibiotics) turned black Surgical - Exam Vital Signs Temp Pulse Resp BP Pulse Ox 96.1 F L 84 16 131/80 100 02/25/25 07:17 02/25/25 07:17 02/25/25 07:17 02/25/25 07:17 02/25/25 07:17 Physical exam: General: Well-developed, well-nourished HEENT: Normocephalic, sclerae nonicteric Abdomen: Nontender, nondistended Extremities: No edema Neuro: Alert and oriented Results - Labs Abnormal Lab Results - Last 24 Hours (Table) 02/25/25 Range/Units 07:26 POC Glucose (mg/dL) 126 H (70-110) mg/dL Assessment and Plan (1) Colon cancer screening Narrative/Plan: Will proceed with colonoscopy at this time. Current Visit: Yes Status: Acute Code(s): Z12.11 - ENCOUNTER FOR SCREENING FOR MALIGNANT NEOPLASM OF COLON SNOMED Code(s): 287087625
--- NOTE | 2025-02-25 08:29 | P.PCN ---
Date of Procedure: 02/25/25 Procedure(s) Performed: PREOPERATIVE DIAGNOSIS: Colon cancer screening with history of polyps POSTOPERATIVE DIAGNOSIS: Small sigmoid colon polyp, diverticulosis PROCEDURE: Colonoscopy with snare polypectomy ANESTHESIA: MAC SURGEON: Kit Wick M.D. SPECIMENS: Polyp ENDOSCOPIC PROCEDURE: The patient was placed on the endoscopy table in the left decubitus position. The Olympus colonoscope was inserted into the anus and passed under direct visualization to the base of the cecum. The appendiceal orifice was visualized. From that point the scope was slowly withdrawn inspecting all surfaces carefully. There were no neoplastic inflammatory or polypoid lesions throughout the cecum, ascending, transverse, and descending colon. In the sigmoid colon there was a small polyp that was removed using the snare with cautery technique. The remainder of the sigmoid and rectum was normal. The patient had mild scattered diverticulosis. Digital rectal examination was normal. The patient was taken to the recovery room in stable condition per anesthesia guidelines. RECOMMENDATIONS: Await biopsy results. Consider repeat colonoscopy 5 to 7 years. Will contact patient with biopsy findings.
[2025-02-25 08:49] VITALS: BP 97/72; PULSE 76; RESP 16
== END 2025-02-25 09:27 | disposition home or self-care (01) ==
LOC: ORWHC2ENDO 06:53
PROVIDERS: ATTEND Surgery
DX: Z12.11 Encounter for screening for malignant neoplasm of colon (principal); D12.5 Benign neoplasm of sigmoid colon; K57.30 Diverticulosis of large intestine without perforation or abscess without bleeding; I10 Essential (primary) hypertension; E11.39 Type 2 diabetes mellitus with other diabetic ophthalmic complication; H40.9 Unspecified glaucoma; H42 Glaucoma in diseases classified elsewhere; E78.5 Hyperlipidemia, unspecified; K21.9 Gastro-esophageal reflux disease without esophagitis; Z91.89 Other specified personal risk factors, not elsewhere classified; Z79.82 Long term (current) use of aspirin; Z79.84 Long term (current) use of oral hypoglycemic drugs; Z79.899 Other long term (current) drug therapy; Z86.0100 Personal history of colon polyps, unspecified; Z88.2 Allergy status to sulfonamides
CPT/HCPCS: 88305; 45385; J2704